=== PATIENT | female | born 1965 | race Caucasian/White ===

== ENCOUNTER 2021-05-18 05:52 | Inpatient (IN) | payer MEDICARE, SELFPAY ==
[2021-05-18] MEDS ORDERED: Sodium Chloride 0.9% 1000 ML 1,000 ML IV STA (06:17)
[2021-05-18] MEDS ORDERED: Hydromorphone 1 mg/ml Injection IV ONE ×2 (06:20→11:41)
[2021-05-18] MEDS ORDERED: Sodium Chloride 0.9% 1000 ML 1,000 ML ONE (06:26)
[2021-05-18] MEDS ORDERED: Hydromorphone 1 mg/ml Injection ONE ×2 (06:26→11:43)
--- NOTE | 2021-05-18 06:40 | ERPHSYRPT ---
- History of Present Illness Source: patient Exam Limitations: no limitations Patient Subjective Stated Complaint: pt states she has had a cough, diarrhea, and vomiting for about a week, has been short of breath for approx 2 days. Triage Nursing Assessment: pt alert and oriented, answers questions approp. pt arrive per ambulance and transfers to [facility] with assist of 3. persistent nonprodictive cough noted. coarse lung sounds with wheezes noted throuhgout. skin warm and dry Timing/Duration: week(s) (1) Cough Quality/Degree: productive cough, sputum Possible Cause: illness exposure Modifying Factors: Improves With: coughing, oxygen Associated Symptoms: chills, cough, headache, muscle aches, other (Complains of associated severe exacerbation of her chronic back pain) Hx Tetanus, Diphtheria Vaccination/Date Given: Yes (2019) Hx Influenza Vaccination/Date Given: No Hx Pneumococcal Vaccination/Date Given: No Immunizations Up to Date: Yes <SERGE MCKENZIE - Last Filed: 05/18/21 06:35> <SHAE MCDONOUGH - Last Filed: 05/18/21 12:16> - History of Present Illness Time Seen by Provider: 05/18/21 06:10 Physician History: Patient is a 55-year-old female who presents with a complaint of cough nausea and vomiting for 1 week and increasing shortness of breath over the past 2 days. She is a smoker she also lives in an apartment building that has many cases of Covid and multiple exposures. She has not had a vaccine she complains of some chills her taste and smell are okay but she has a severe headache and as mentioned above cough shortness of breath nausea vomiting. She did get a Covid test approximately a week ago which was negative. (SERGE MCKENZIE) Allergies/Adverse Reactions: Penicillins Allergy (Mild, Verified 07/07/16 08:56) Travel Risk - International Travel Have you traveled outside of the country in past 3 weeks: No - Coronavirus Screening Are you exhibiting any of the following symptoms?: Yes Symptoms: Cough: New Onset, Shortness of Breath, Vomiting/Diarrhea Close contact with a COVID-19 positive Pt in past 14-21 Days: No - Vaccine Status Have you recieved a Covid-19 vaccination: No <SERGE MCKENZIE - Last Filed: 05/18/21 06:35> - Review of Systems Constitutional: Chills Eyes: No Symptoms Ears, Nose, & Throat: Nose Congestion Respiratory: Cough, Dyspnea Cardiac: No Chest Pain, No Edema, No Syncope Abdominal/Gastrointestinal: Nausea, Vomiting Genitourinary Symptoms: No Dysuria Musculoskeletal: Back Pain Neurological: Headache Psychological: No Symptoms Endocrine: No Symptoms Hematologic/Lymphatic: No Symptoms Immunological/Allergic: No Symptoms All Other Systems: Reviewed and Negative <SERGE MCKENZIE Last Filed: 05/18/21 06:35> - Past Medical History Pertinent Past Medical History: Yes Neurological History: Stroke Cardiac History: Hypertension Respiratory History: COPD, Emphysema Psycho-Social History: Depression - Past Surgical History Past Surgical History: Yes Musculoskeletal: Orthopedic Surgery Female Surgical History: Hysterectomy, Tubal Ligation, Section Other Surgical History: neck fusion - back surgeries x 3 - right elbow - left hand - left ankle - Social History Smoking Status: Current every day smoker How long have you smoked: YRS Exposure to second hand smoke: No Drug Use: none Patient Lives Alone: Yes (lives in a [place] apartment, formerly went to [facility]) Significant Family History: no pertinent family hx <SERGE MCKENZIE Filed: 05/18/21 06:35> - Physical Exam General Appearance: moderate distress, alert Eye Exam: PERRL/EOMI, eyes nml inspection Ears, Nose, Throat Exam: normal ENT inspection, TMs normal, pharynx normal, moist mucous membranes Neck Exam: normal inspection, non-tender, supple, full range of motion Respiratory Exam: diminished breath sounds, crackles/rales, wheezing, No respiratory distress Cardiovascular Exam: regular rate/rhythm, normal heart sounds Gastrointestinal/Abdomen Exam: soft, No tenderness Back Exam: normal inspection, No CVA tenderness, No vertebral tenderness Extremity Exam: normal inspection, normal range of motion Neurologic Exam: alert, oriented x 3, cooperative, normal mood/affect, sensation nml, No motor deficits Skin Exam: normal color, warm, dry, No rash Lymphatic Exam: No adenopathy SpO2 Interpretation: normal SpO2: 92 O2 Delivery: Room Air <SERGE MCKENZIE Filed: 05/18/21 06:35> - Nursing Vital Signs Nursing Vital Signs: Initial Vital Signs Temperature 98.1 F 05/18/21 06:00 Pulse Rate 93 H 05/18/21 06:00 Respiratory Rate 24 05/18/21 06:00 Blood Pressure 158/101 05/18/21 06:00 O2 Sat by Pulse Oximetry 92 L 05/18/21 06:00 Pain Scale Pain Intensity 5 - Course Nursing assessment & vital signs reviewed: Yes <SERGE MCKENZIE - Last Filed: 05/18/21 06:35> Ordered Tests: Active Orders 24 hr Category Date Time Status [place] STAT Care 05/18/21 06:17 Active EKG-ER Only STAT Care 05/18/21 06:17 Active IV Insertion STAT Care 05/18/21 06:17 Active Oxygen-ED Only Nasal Cannula 3 lpm Care 05/18/21 06:17 Active CHEST 1 VIEW (PORTABLE) Stat Exams 05/18/21 06:17 Completed CHEST WITH CONTRAST [CT] Stat Exams 05/18/21 07:41 Completed AMYLASE Stat Lab 05/18/21 06:05 Completed BLOOD CULTURE Stat Lab 05/18/21 07:20 Received CBC W DIFF Stat Lab 05/18/21 06:05 Completed CMP Stat Lab 05/18/21 06:05 Completed D-DIMER QUANTITATIVE Stat Lab 05/18/21 06:05 Completed LIPASE Stat Lab 05/18/21 06:05 Completed Lactic Acid Stat Lab 05/18/21 06:17 Completed Manual Differential NC Stat Lab 05/18/21 06:05 Completed NT PRO BNP Stat Lab 05/18/21 06:05 Completed PROCALCITONIN Stat Lab 05/18/21 06:05 Completed PROTIME WITH INR Stat Lab 05/18/21 06:05 Completed TROPONIN Q3H Lab 05/18/21 06:05 Completed TROPONIN Q3H Lab 05/18/21 09:36 Completed TROPONIN Q3H Lab 05/18/21 12:30 Ordered TROPONIN Q3H Lab 05/18/21 15:30 Ordered TROPONIN Q3H Lab 05/18/21 18:30 Ordered UA W/RFX UR CULTURE Stat Lab 05/18/21 11:11 Completed Transfer Order Routine Transfer 05/18/21 Ordered Medication Summary Discontinued Medications Generic Name Dose Route Start Last Admin Trade Name Freq PRN Reason Stop Dose Admin Hydrocodone Bitart/Acetaminophen 10 ml 05/18/21 07:29 05/18/21 07:55 Hydrocodone/Acetaminophen 5 Ml Udcup PO 05/18/21 07:30 10 ml STAT STA Administration Hydrocodone Bitart/Acetaminophen Confirm 05/18/21 07:53 Hydrocodone/Acetaminophen 5 Ml Udcup Administered 05/18/21 07:54 Dose 10 ml .ROUTE .STK-MED ONE Methylprednisolone Sodium 0 mg 05/18/21 07:29 05/18/21 07:55 Succinate 125 mg/ Sterile IV 05/18/21 07:30 125 mg Water 2 ml STAT ONE Administration Hydromorphone HCl 1 mg 05/18/21 06:20 05/18/21 06:30 Hydromorphone 1 Mg/1ml Inj 1 Mg/Ml Syringe IV 05/18/21 06:21 1 mg STAT ONE Administration Hydromorphone HCl Confirm 05/18/21 06:26 Hydromorphone 1 Mg/1ml Inj 1 Mg/Ml Syringe Administered 05/18/21 06:27 Dose 1 mg .ROUTE .STK-MED ONE Hydromorphone HCl 1 mg 05/18/21 11:41 05/18/21 11:44 Hydromorphone 1 Mg/1ml Inj 1 Mg/Ml Syringe IV 05/18/21 11:42 1 mg STAT ONE Administration Hydromorphone HCl Confirm 05/18/21 11:43 Hydromorphone 1 Mg/1ml Inj 1 Mg/Ml Syringe Administered 05/18/21 11:44 Dose 1 mg .ROUTE .STK-MED ONE Sodium Chloride 1,000 mls @ 999 mls/hr 05/18/21 06:17 05/18/21 11:13 Sodium Chloride 0.9% 1000 Ml IV 05/18/21 07:17 Infused .Q1H1M STA Infusion Sodium Chloride Confirm 05/18/21 06:26 Sodium Chloride 0.9% 1000 Ml Administered 05/18/21 06:27 Dose 1,000 mls @ ud .ROUTE .STK-MED ONE Levofloxacin/Dextrose 500 mg in 100 mls @ 100 mls/hr 05/18/21 07:29 05/18/21 11:13 Levofloxacin 500mg/100ml D5w IV 05/18/21 08:28 Infused STAT STA Infusion Levofloxacin/Dextrose Confirm 05/18/21 07:53 Levofloxacin 500mg/100ml D5w Administered 05/18/21 07:54 Dose 500 mg in 100 mls @ ud IV .STK-MED ONE Methylprednisolone Sodium Succinate Confirm 05/18/21 07:53 Methylprednis Sod Succ 125 Mg/2 Ml Vial Administered 05/18/21 07:54 Dose 125 mg .ROUTE .STK-MED ONE Sterile Water Confirm 05/18/21 07:53 Water For Injection,Sterile 10 Ml Vial Administered 05/18/21 07:54 Dose 10 ml IJ .STK-MED ONE Lab/Rad Data: Laboratory Result Diagrams 05/18/21 06:05 05/18/21 06:05 Laboratory Results 05/18/21 05/18/21 05/18/21 Range/Units 11:11 11:01 09:36 WBC (4.0-10.5) K/mm3 RBC (4.1-5.4) M/mm3 Hgb (12.0-16.0) gm/dl Hct (35-47) % MCV (78-100) fl MCH (26-32) pg MCHC (32-36) g/dl RDW (11.5-14.0) % Plt Count (150-450) K/mm3 MPV (7.5-11.0) fl Gran % (36.0-66.0) % Eos # (Auto) (0-0.5) Absolute Lymphs (auto) (1.0-4.6) Absolute Monos (auto) (0.0-1.3) Lymphocytes % (24.0-44.0) % Monocytes % (0.0-12.0) % Eosinophils % (0.00-5.0) % Basophils % (0.0-0.4) % Absolute Granulocytes (1.4-6.9) Segmented Neutrophils (36.0-66.0) % Lymphocytes (Manual) (24-44) % Monocytes (Manual) (0.0-12.0) % Basophils # (0-0.4) Toxic Granulation Platelet Estimate (NORMAL) PT (9.4-12.5) SECONDS INR (0.8-3.0) D-Dimer (215-500) ng/mL Sodium (137-145) mmol/L Potassium (3.5-5.1) mmol/L Chloride (98-107) mmol/L Carbon Dioxide (22-30) mmol/L Anion Gap (5-15) MEQ/L BUN (7-17) mg/dL Creatinine (0.52-1.04) mg/dL Estimated GFR ML/MIN Glucose (74-106) mg/dL Lactic Acid (0.4-2.0) Calcium (8.4-10.2) mg/dL Total Bilirubin (0.2-1.3) mg/dL AST (14-36) U/L ALT (0-35) U/L Alkaline Phosphatase (38-126) U/L Troponin I < 0.012 (0.000-0.034) ng/mL NT-Pro-B Natriuret Pep (0-900) pg/mL Serum Total Protein (6.3-8.2) g/dL Albumin (3.5-5.0) g/dL Amylase (30-110) U/L Lipase (23-300) U/L Procalcitonin (0.030-0.080) ng/mL Urine Color YELLOW (YELLOW) Urine Appearance CLEAR (CLEAR) Urine pH 5.0 (5-6) Ur Specific [place] S3 (1.005-1.025) Urine Protein NEGATIVE (Negative) Urine Ketones NEGATIVE (NEGATIVE) Urine Blood NEGATIVE (0-5) Dung/ul Urine Nitrite NEGATIVE (NEGATIVE) Urine Bilirubin NEGATIVE (NEGATIVE) Urine Urobilinogen 2 (0-1) mg/dL Ur Leukocyte Esterase NEGATIVE (NEGATIVE) Urine WBC (Auto) 0-2 (0-5) /HPF Urine RBC (Auto) 0-2 (0-2) /HPF U Epithel Cells (Auto) RARE (FEW) /HPF Urine Bacteria (Auto) NONE (NEGATIVE) /HPF Urine Mucus (Auto) SLIGHT (NEGATIVE) /HPF Urine Culture Reflexed NO (NO) Urine Glucose NEGATIVE (NEGATIVE) mg/dL SARS-CoV-2 (PCR) NEGATIVE (NEGATIVE) 05/18/21 05/18/21 05/18/21 Range/Units 06:17 06:05 06:05 WBC (4.0-10.5) K/mm3 RBC (4.1-5.4) M/mm3 Hgb (12.0-16.0) gm/dl Hct (35-47) % MCV (78-100) fl MCH (26-32) pg MCHC (32-36) g/dl RDW (11.5-14.0) % Plt Count (150-450) K/mm3 MPV (7.5-11.0) fl Gran % (36.0-66.0) % Eos # (Auto) (0-0.5) Absolute Lymphs (auto) (1.0-4.6) Absolute Monos (auto) (0.0-1.3) Lymphocytes % (24.0-44.0) % Monocytes % (0.0-12.0) % Eosinophils % (0.00-5.0) % Basophils % (0.0-0.4) % Absolute Granulocytes (1.4-6.9) Segmented Neutrophils (36.0-66.0) % Lymphocytes (Manual) (24-44) % Monocytes (Manual) (0.0-12.0) % Basophils # (0-0.4) Toxic Granulation Platelet Estimate (NORMAL) PT 13.2 H (9.4-12.5) SECONDS INR 1.12 (0.8-3.0) D-Dimer 815 H* (215-500) ng/mL Sodium (137-145) mmol/L Potassium (3.5-5.1) mmol/L Chloride (98-107) mmol/L Carbon Dioxide (22-30) mmol/L Anion Gap (5-15) MEQ/L BUN (7-17) mg/dL Creatinine (0.52-1.04) mg/dL Estimated GFR ML/MIN Glucose (74-106) mg/dL Lactic Acid 1.5 (0.4-2.0) Calcium (8.4-10.2) mg/dL Total Bilirubin (0.2-1.3) mg/dL AST (14-36) U/L ALT (0-35) U/L Alkaline Phosphatase (38-126) U/L Troponin I < 0.012 (0.000-0.034) ng/mL NT-Pro-B Natriuret Pep (0-900) pg/mL Serum Total Protein (6.3-8.2) g/dL Albumin (3.5-5.0) g/dL Amylase (30-110) U/L Lipase (23-300) U/L Procalcitonin (0.030-0.080) ng/mL Urine Color (YELLOW) Urine Appearance (CLEAR) Urine pH (5-6) Ur Specific [place] (1.005-1.025) Urine Protein (Negative) Urine Ketones (NEGATIVE) Urine Blood (0-5) Dung/ul Urine Nitrite (NEGATIVE) Urine Bilirubin (NEGATIVE) Urine Urobilinogen (0-1) mg/dL Ur Leukocyte Esterase (NEGATIVE) Urine WBC (Auto) (0-5) /HPF Urine RBC (Auto) (0-2) /HPF U Epithel Cells (Auto) (FEW) /HPF Urine Bacteria (Auto) (NEGATIVE) /HPF Urine Mucus (Auto) (NEGATIVE) /HPF Urine Culture Reflexed (NO) Urine Glucose (NEGATIVE) mg/dL SARS-CoV-2 (PCR) (NEGATIVE) 05/18/21 05/18/21 Range/Units 06:05 06:05 WBC 20.4 H (4.0-10.5) K/mm3 RBC 4.23 (4.1-5.4) M/mm3 Hgb 13.9 (12.0-16.0) gm/dl Hct 42.0 (35-47) % MCV 99.3 (78-100) fl MCH 32.9 H (26-32) pg MCHC 33.1 (32-36) g/dl RDW 13.2 (11.5-14.0) % Plt Count 299 (150-450) K/mm3 MPV 9.8 (7.5-11.0) fl Gran % 80.6 H (36.0-66.0) % Eos # (Auto) 0.02 (0-0.5) Absolute Lymphs (auto) 2.30 (1.0-4.6) Absolute Monos (auto) 1.61 H (0.0-1.3) Lymphocytes % 11.3 L (24.0-44.0) % Monocytes % 7.9 (0.0-12.0) % Eosinophils % 0.1 (0.00-5.0) % Basophils % 0.1 (0.0-0.4) % Absolute Granulocytes 16.44 H (1.4-6.9) Segmented Neutrophils 82 H (36.0-66.0) % Lymphocytes (Manual) 12 L (24-44) % Monocytes (Manual) 6 (0.0-12.0) % Basophils # 0.02 (0-0.4) Toxic Granulation 1+ Platelet Estimate NORMAL (NORMAL) PT (9.4-12.5) SECONDS INR (0.8-3.0) D-Dimer (215-500) ng/mL Sodium 137 (137-145) mmol/L Potassium 4.1 (3.5-5.1) mmol/L Chloride 103 (98-107) mmol/L Carbon Dioxide 21 L (22-30) mmol/L Anion Gap 16.4 H (5-15) MEQ/L BUN 22 H (7-17) mg/dL Creatinine 0.79 (0.52-1.04) mg/dL Estimated GFR > 60.0 ML/MIN Glucose 159 H (74-106) mg/dL Lactic Acid (0.4-2.0) Calcium 9.8 (8.4-10.2) mg/dL Total Bilirubin 0.50 (0.2-1.3) mg/dL AST 25 (14-36) U/L ALT 19 (0-35) U/L Alkaline Phosphatase 112 (38-126) U/L Troponin I (0.000-0.034) ng/mL NT-Pro-B Natriuret Pep 113 (0-900) pg/mL Serum Total Protein 7.8 (6.3-8.2) g/dL Albumin 4.4 (3.5-5.0) g/dL Amylase 55 (30-110) U/L Lipase 45 (23-300) U/L Procalcitonin 0.419 H (0.030-0.080) ng/mL Urine Color (YELLOW) Urine Appearance (CLEAR) Urine pH (5-6) Ur Specific [place] (1.005-1.025) Urine Protein (Negative) Urine Ketones (NEGATIVE) Urine Blood (0-5) Dung/ul Urine Nitrite (NEGATIVE) Urine Bilirubin (NEGATIVE) Urine Urobilinogen (0-1) mg/dL Ur Leukocyte Esterase (NEGATIVE) Urine WBC (Auto) (0-5) /HPF Urine RBC (Auto) (0-2) /HPF U Epithel Cells (Auto) (FEW) /HPF Urine Bacteria (Auto) (NEGATIVE) /HPF Urine Mucus (Auto) (NEGATIVE) /HPF Urine Culture Reflexed (NO) Urine Glucose (NEGATIVE) mg/dL SARS-CoV-2 (PCR) (NEGATIVE) - Progress Air Movement: fair Blood Culture(s) Obtained: Yes Antibiotics given: Yes Counseled pt/family regarding: lab results, diagnosis, rad results, smoking cessation <SHAE MCDONOUGH - Last Filed: 05/18/21 12:16> - Progress Progress Note: 05/18/21 09:45 Chest x-ray read by Dr. Mckenzie as possible right lower lobe pneumonia. CAT scan of the chest with contrast shows no pulmonary embolus. There is diffuse patchy alveolar opacities present. There is pulmonary emphysema present. (SHAE MCDNOOUGH) - Departure Departure Disposition: Observation Critical Care Time: No <SERGE MCKENZIE - Last Filed: 05/18/21 06:35> - Departure Departure Disposition: In-patient Admission <SHAE MCDONOUGH - Last Filed: 05/18/21 12:16> - Departure Clinical Impression: Hypoxia, Pneumonia Condition: Fair Referrals: NATALIE MACIEL [NON-STAFF PHY W/O PRIVILEGES] - Instructions: Cough, Adult (DC)
[2021-05-18 06:44] LABS: Absolute Neutrophil Ct (ANC) 16.44 (1.4-6.9); BASOPHIL % 0.1 % (0.0-0.4); Basophil (Absolute #) 0.02 (0-0.4); Eosinophil % 0.1 % (0.00-5.0); Eosinophil (Absolute #) 0.02 (0-0.5); Hemoglobin 13.9 gm/dl (12.0-16.0); Lymphocytes % 11.3 % (24.0-44.0); Mean Cell Volume 99.3 fl (78-100); Mean Corpuscular Hemoglobin 32.9 pg (26-32); Mean Corpuscular Hgb Concent. 33.1 g/dl (32-36); Mean Platelet Volume 9.8 fl (7.5-11.0); Monocyte (Absolute #) 1.61 (0.0-1.3); Monocytes % 7.9 % (0.0-12.0); Neutrophil % 80.6 % (36.0-66.0); Platelet Count 299 K/mm3 (150-450); Red Blood Count 4.23 M/mm3 (4.1-5.4); Red Cell Distribution Width 13.2 % (11.5-14.0); White Blood Count 20.4 K/mm3 (4.0-10.5)
[2021-05-18 06:49] LABS: INR 1.12 (0.8-3.0); PROTIME 13.2 SECONDS (9.4-12.5)
[2021-05-18] MEDS ORDERED: HYDROCODONE-ACETAMIN 2.5-108/5 ML SOLUTION PO STA (07:29)
[2021-05-18] MEDS ORDERED: Levofloxacin 500MG/100ML D5W 500 MG/100 ML BAG IV STA (07:29)
[2021-05-18] MEDS ORDERED: solu-MEDROL 125 MG, Sterile H2O 10 ml 2 ML IV ONE ×2 (07:29)
[2021-05-18 07:36] LABS: ALBUMIN 4.4 g/dL (3.5-5.0); ALKALINE PHOSPHATASE 112 U/L (38-126); AMYLASE 55 U/L (30-110); ANION GAP 16.4 MEQ/L (5-15); BLOOD UREA NITROGEN 22 mg/dL (7-17); CHLORIDE 103 mmol/L (98-107); Calcium 9.8 mg/dL (8.4-10.2); Carbon Dioxide 21 mmol/L (22-30); Creatinine 1 0.79 mg/dL (0.52-1.04); EST GLOMERULAR FILTRATION RATE > 60.0 ML/MIN; Glucose 159 mg/dL (74-106); LIPASE 45 U/L (23-300); NT PRO BNP 113 pg/mL (0-900); PROCALCITONIN 0.419 ng/mL (0.030-0.080); Potassium 4.1 mmol/L (3.5-5.1); SGOT/AST 25 U/L (14-36); SGPT/ALT 19 U/L (0-35); SODIUM 137 mmol/L (137-145); Total Protein 7.8 g/dL (6.3-8.2)
[2021-05-18 07:37] LABS: Lymphocytes 12 % (24-44); Monocyte 6 % (0.0-12.0); Neutrophils 82 % (36.0-66.0); Platelet Estimate NORMAL (NORMAL); Total Cells Counted 100; Toxic Granulation 1+
[2021-05-18] MEDS ORDERED: Sterile H2O 10 ml IJ ONE (07:53)
[2021-05-18] MEDS ORDERED: HYDROCODONE-ACETAMIN 2.5-108/5 ML SOLUTION ONE (07:53)
[2021-05-18] MEDS ORDERED: solu-MEDROL ONE (07:53)
[2021-05-18] MEDS ORDERED: Levofloxacin 500MG/100ML D5W 500 MG/100 ML BAG IV ONE (07:53)
--- NOTE | 2021-05-18 08:51 | XRAY ---
Indication: Cough. Comparison: None Portable chest remains hyperinflated and clear. Heart not enlarged. Bony thorax intact again with mild osteopenia, degenerative changes, and incompletely visualized cervical/lumbar hardware. Impression: Continued nonacute chest with chronic features.
--- NOTE | 2021-05-18 09:29 | XRAY ---
Indication: Cough, short of breath, and vomiting. Elevated d-dimer. COPD. Multiple contiguous axial images obtained through the chest using 80 cc Isovue 370 contrast and PE protocol. Comparison: None Good opacification of the pulmonary arteries to include the lobar and segmental branches. No pulmonary embolus. Heart not enlarged. Aorta normal in course and caliber. Lungs demonstrates mild pulmonary edema and diffuse bilateral patchy interstitial alveolar opacities without consolidation/large effusion. Peripheral right middle lobe demonstrates focal subsegmental atelectasis/scarring. Bony thorax intact. Limited upper abdomen unremarkable. Impression: 1. Negative pulmonary bolus. 2. Diffuse bilateral patchy interstitial alveolar opacities. Rule out COVID 19 pneumonia. 3. Pulmonary emphysema.
[2021-05-18 11:31] LABS: Appearance CLEAR (CLEAR); Bilirubin NEGATIVE (NEGATIVE); Blood NEGATIVE Ery/ul (0-5); Epithelial Cells RARE /HPF (FEW); Glucose NEGATIVE (NEGATIVE); Ketones NEGATIVE (NEGATIVE); Leukocyte Esterase NEGATIVE (NEGATIVE); Mucus SLIGHT /HPF (NEGATIVE); Nitrite NEGATIVE (NEGATIVE); Protein,Urine Dip NEGATIVE (Negative); RBC 0-2 /HPF (0-2); Urobilinogen 2 mg/dL (0-1); WBC 0-2 /HPF (0-5)
[2021-05-18] MEDS ORDERED: TYLENOL 325 MG PO PRN (12:51)
[2021-05-18] MEDS: Sodium Chloride 0.9% 1000 ML 1,000 ML IV SCH ×2 (13:39→23:59)
[2021-05-18] MEDS: solu-MEDROL 80 MG, Sterile H2O 10 ml 2 ML IV SCH ×4 (13:41→21:09)
[2021-05-18] MEDS: Zofran 4 MG/2 ML VIAL IV PRN (14:56)
[2021-05-18] MEDS: HYDROCODONE-ACETAMIN 2.5-108/5 ML SOLUTION PO PRN ×2 (14:56→19:48)
[2021-05-18] MEDS ORDERED: VENTOLIN COMMON CANISTER IH PRN (16:25)
[2021-05-18] MEDS: Ativan 2 MG/1 ML VIAL IV PRN (18:15)
--- NOTE | 2021-05-18 19:09 | PCM.HP ---
History of Present Illness - Chief Complaint Chief Complaint: pneumonia History of Present Illness: is a 55 year old female female pt with no local MD with PMHx HTN and COPD who was admitted through ER with pneumonia. For the past 1 week she has had cough, diarrhea, vomiting, and chills. Was increasingly SOB x 2d and c/o severe ABARCA. Was seen in ER where she needed 3 assist to get onto the bed. Was found to have diffuse airspace opacities on CTA chest (neg for PE) after having elevated d-dimer of 815. She lives in a hotel in [place] and has had multiple covid exposures recently, apparently. She did test negative 1 week ago but it's not clear when her last exposure happened. Her WBC were 20,000. She was started on IV levaquin. Will start her on SQ lovenox. After admission her BP was 201 systolic; she was given her pain medicine and the bp decreased to 160s systolic. She apparently used to take amlodipine but hasn't been on it for some time. - Review of Systems Constitutional: Chills, Weakness Respiratory: Cough, Short Of Breath Cardiac: Chest Pain ("not much") Abdominal/Gastrointestinal: Abdominal Pain (lower-mid abd; gone currently), Nausea, Vomiting, Diarrhea Musculoskeletal: Back Pain (chronic) Neurological: Dizziness Psychological: Depression (several deaths in the family recently; denies suicidal ideation.), Other (Denies EtOH use in years. She used to use some marijuana.) All Other Systems: Reviewed and Negative Medications & Allergies Home Medications: Home Medication List No Reportable Medications [No Reported Medications] 05/18/21 [History Confirmed 05/18/21] Allergies/Adverse Reactions: Allergies Allergy/AdvReac Type Severity Reaction Status Date / Time Penicillins Allergy Mild Verified 05/18/21 14:22 - Past Medical History Past Medical History: Yes Neurological History: Stroke Cardiac History: Hypertension Respiratory History: COPD, Emphysema Musculoskelatal History: No Pertinent History GI Medical History: No Pertinent History History: No Pertinent History Pyscho-Social History: Depression Reproductive Disorders: No Pertinent History - Female History Are you now?: No - Past Surgical History Past Surgical History: Yes Neuro Surgical History: No Pertinent History Cardiac History: No Pertinent History Respiratory Surgery: No Pertinent History GI Surgical History: No Pertinent History Genitourinary Surgical Hx: No Pertinent History Musculskeletal Surgical Hx: Orthopedic Surgery Female Surgical History: Hysterectomy, Tubal Ligation, Section Other Surgical History: neck fusion - back surgeries x 3 - right elbow - left hand - left ankle - Social History Smoking Status: Current every day smoker How long have you smoked: YRS Exposure to second hand smoke: No Alcohol: None Drug Use: none Significant Family History: no pertinent family hx - Physical Exam Vital Signs: Vital Signs - 24 hr Temp Pulse Resp BP Pulse Ox 05/18/21 18:15 84 28 H 05/18/21 16:00 98.5 F 84 28 H 165/80 93 L 05/18/21 15:55 84 20 92 L 05/18/21 12:56 97.1 F 79 24 203/101 92 L 05/18/21 12:00 84 16 179/106 93 L 05/18/21 11:11 84 18 165/113 96 05/18/21 10:17 86 17 175/102 94 L 05/18/21 08:04 80 21 140/90 93 L 05/18/21 07:46 82 19 164/94 94 L 05/18/21 06:39 92 L 05/18/21 06:00 98.1 F 93 H 22 158/101 92 L General Appearance: no apparent distress, alert, other (appears older than stated age.) Neurologic Exam: oriented x 3, cooperative Eye Exam: eyes nml inspection Ears, Nose, Throat Exam: moist mucous membranes Neck Exam: normal inspection, No lymphadenopathy Respiratory Exam: diminished breath sounds (poor air exchange), rhonchi (scattered), wheezing (scattered), No crackles/rales Cardiovascular Exam: regular rate/rhythm, normal heart sounds, No murmur Gastrointestinal/Abdomen Exam: soft, normal bowel sounds, tenderness (generalized, throughout), No distention, No mass, No guarding, No rebound Back Exam: normal inspection, other (surgical scar midline lumbar spine) Extremity Exam: normal inspection, No pedal edema, No swelling Skin Exam: normal color, warm, dry, No rash Results - Labs Lab/Micro Results: Lab Results-Last 24 Hours 05/18/21 05/18/21 05/18/21 Range/Units 06:05 06:05 06:05 WBC 20.4 H (4.0-10.5) K/mm3 RBC 4.23 (4.1-5.4) M/mm3 Hgb 13.9 (12.0-16.0) gm/dl Hct 42.0 (35-47) % MCV 99.3 (78-100) fl MCH 32.9 H (26-32) pg MCHC 33.1 (32-36) g/dl RDW 13.2 (11.5-14.0) % Plt Count 299 (150-450) K/mm3 MPV 9.8 (7.5-11.0) fl Gran % 80.6 H (36.0-66.0) % Eos # (Auto) 0.02 (0-0.5) Absolute Lymphs (auto) 2.30 (1.0-4.6) Absolute Monos (auto) 1.61 H (0.0-1.3) Lymphocytes % 11.3 L (24.0-44.0) % Monocytes % 7.9 (0.0-12.0) % Eosinophils % 0.1 (0.00-5.0) % Basophils % 0.1 (0.0-0.4) % Absolute Granulocytes 16.44 H (1.4-6.9) Segmented Neutrophils 82 H (36.0-66.0) % Lymphocytes (Manual) 12 L (24-44) % Monocytes (Manual) 6 (0.0-12.0) % Basophils # 0.02 (0-0.4) Toxic Granulation 1+ Platelet Estimate NORMAL (NORMAL) PT 13.2 H (9.4-12.5) SECONDS INR 1.12 (0.8-3.0) D-Dimer 815 H* (215-500) ng/mL Sodium 137 (137-145) mmol/L Potassium 4.1 (3.5-5.1) mmol/L Chloride 103 (98-107) mmol/L Carbon Dioxide 21 L (22-30) mmol/L Anion Gap 16.4 H (5-15) MEQ/L BUN 22 H (7-17) mg/dL Creatinine 0.79 (0.52-1.04) mg/dL Estimated GFR > 60.0 ML/MIN Glucose 159 H (74-106) mg/dL Lactic Acid (0.4-2.0) Calcium 9.8 (8.4-10.2) mg/dL Total Bilirubin 0.50 (0.2-1.3) mg/dL AST 25 (14-36) U/L ALT 19 (0-35) U/L Alkaline Phosphatase 112 (38-126) U/L Troponin I (0.000-0.034) ng/mL NT-Pro-B Natriuret Pep 113 (0-900) pg/mL Serum Total Protein 7.8 (6.3-8.2) g/dL Albumin 4.4 (3.5-5.0) g/dL Amylase 55 (30-110) U/L Lipase 45 (23-300) U/L Procalcitonin 0.419 H (0.030-0.080) ng/mL Urine Color (YELLOW) Urine Appearance (CLEAR) Urine pH (5-6) Ur Specific [place] (1.005-1.025) Urine Protein (Negative) Urine Ketones (NEGATIVE) Urine Blood (0-5) Dung/ul Urine Nitrite (NEGATIVE) Urine Bilirubin (NEGATIVE) Urine Urobilinogen (0-1) mg/dL Ur Leukocyte Esterase (NEGATIVE) Urine WBC (Auto) (0-5) /HPF Urine RBC (Auto) (0-2) /HPF U Epithel Cells (Auto) (FEW) /HPF Urine Bacteria (Auto) (NEGATIVE) /HPF Urine Mucus (Auto) (NEGATIVE) /HPF Urine Culture Reflexed (NO) Urine Glucose (NEGATIVE) mg/dL SARS-CoV-2 (PCR) (NEGATIVE) 05/18/21 05/18/21 05/18/21 Range/Units 06:05 06:17 09:36 WBC (4.0-10.5) K/mm3 RBC (4.1-5.4) M/mm3 Hgb (12.0-16.0) gm/dl Hct (35-47) % MCV (78-100) fl MCH (26-32) pg MCHC (32-36) g/dl RDW (11.5-14.0) % Plt Count (150-450) K/mm3 MPV (7.5-11.0) fl Gran % (36.0-66.0) % Eos # (Auto) (0-0.5) Absolute Lymphs (auto) (1.0-4.6) Absolute Monos (auto) (0.0-1.3) Lymphocytes % (24.0-44.0) % Monocytes % (0.0-12.0) % Eosinophils % (0.00-5.0) % Basophils % (0.0-0.4) % Absolute Granulocytes (1.4-6.9) Segmented Neutrophils (36.0-66.0) % Lymphocytes (Manual) (24-44) % Monocytes (Manual) (0.0-12.0) % Basophils # (0-0.4) Toxic Granulation Platelet Estimate (NORMAL) PT (9.4-12.5) SECONDS INR (0.8-3.0) D-Dimer (215-500) ng/mL Sodium (137-145) mmol/L Potassium (3.5-5.1) mmol/L Chloride (98-107) mmol/L Carbon Dioxide (22-30) mmol/L Anion Gap (5-15) MEQ/L BUN (7-17) mg/dL Creatinine (0.52-1.04) mg/dL Estimated GFR ML/MIN Glucose (74-106) mg/dL Lactic Acid 1.5 (0.4-2.0) Calcium (8.4-10.2) mg/dL Total Bilirubin (0.2-1.3) mg/dL AST (14-36) U/L ALT (0-35) U/L Alkaline Phosphatase (38-126) U/L Troponin I < 0.012 < 0.012 (0.000-0.034) ng/mL NT-Pro-B Natriuret Pep (0-900) pg/mL Serum Total Protein (6.3-8.2) g/dL Albumin (3.5-5.0) g/dL Amylase (30-110) U/L Lipase (23-300) U/L Procalcitonin (0.030-0.080) ng/mL Urine Color (YELLOW) Urine Appearance (CLEAR) Urine pH (5-6) Ur Specific [place] (1.005-1.025) Urine Protein (Negative) Urine Ketones (NEGATIVE) Urine Blood (0-5) Dung/ul Urine Nitrite (NEGATIVE) Urine Bilirubin (NEGATIVE) Urine Urobilinogen (0-1) mg/dL Ur Leukocyte Esterase (NEGATIVE) Urine WBC (Auto) (0-5) /HPF Urine RBC (Auto) (0-2) /HPF U Epithel Cells (Auto) (FEW) /HPF Urine Bacteria (Auto) (NEGATIVE) /HPF Urine Mucus (Auto) (NEGATIVE) /HPF Urine Culture Reflexed (NO) Urine Glucose (NEGATIVE) mg/dL SARS-CoV-2 (PCR) (NEGATIVE) 05/18/21 05/18/21 05/18/21 Range/Units 11:01 11:11 13:05 WBC (4.0-10.5) K/mm3 RBC (4.1-5.4) M/mm3 Hgb (12.0-16.0) gm/dl Hct (35-47) % MCV (78-100) fl MCH (26-32) pg MCHC (32-36) g/dl RDW (11.5-14.0) % Plt Count (150-450) K/mm3 MPV (7.5-11.0) fl Gran % (36.0-66.0) % Eos # (Auto) (0-0.5) Absolute Lymphs (auto) (1.0-4.6) Absolute Monos (auto) (0.0-1.3) Lymphocytes % (24.0-44.0) % Monocytes % (0.0-12.0) % Eosinophils % (0.00-5.0) % Basophils % (0.0-0.4) % Absolute Granulocytes (1.4-6.9) Segmented Neutrophils (36.0-66.0) % Lymphocytes (Manual) (24-44) % Monocytes (Manual) (0.0-12.0) % Basophils # (0-0.4) Toxic Granulation Platelet Estimate (NORMAL) PT (9.4-12.5) SECONDS INR (0.8-3.0) D-Dimer (215-500) ng/mL Sodium (137-145) mmol/L Potassium (3.5-5.1) mmol/L Chloride (98-107) mmol/L Carbon Dioxide (22-30) mmol/L Anion Gap (5-15) MEQ/L BUN (7-17) mg/dL Creatinine (0.52-1.04) mg/dL Estimated GFR ML/MIN Glucose (74-106) mg/dL Lactic Acid (0.4-2.0) Calcium (8.4-10.2) mg/dL Total Bilirubin (0.2-1.3) mg/dL AST (14-36) U/L ALT (0-35) U/L Alkaline Phosphatase (38-126) U/L Troponin I < 0.012 (0.000-0.034) ng/mL NT-Pro-B Natriuret Pep (0-900) pg/mL Serum Total Protein (6.3-8.2) g/dL Albumin (3.5-5.0) g/dL Amylase (30-110) U/L Lipase (23-300) U/L Procalcitonin (0.030-0.080) ng/mL Urine Color YELLOW (YELLOW) Urine Appearance CLEAR (CLEAR) Urine pH 5.0 (5-6) Ur Specific [place] S3 (1.005-1.025) Urine Protein NEGATIVE (Negative) Urine Ketones NEGATIVE (NEGATIVE) Urine Blood NEGATIVE (0-5) Dung/ul Urine Nitrite NEGATIVE (NEGATIVE) Urine Bilirubin NEGATIVE (NEGATIVE) Urine Urobilinogen 2 (0-1) mg/dL Ur Leukocyte Esterase NEGATIVE (NEGATIVE) Urine WBC (Auto) 0-2 (0-5) /HPF Urine RBC (Auto) 0-2 (0-2) /HPF U Epithel Cells (Auto) RARE (FEW) /HPF Urine Bacteria (Auto) NONE (NEGATIVE) /HPF Urine Mucus (Auto) SLIGHT (NEGATIVE) /HPF Urine Culture Reflexed NO (NO) Urine Glucose NEGATIVE (NEGATIVE) mg/dL SARS-CoV-2 (PCR) NEGATIVE (NEGATIVE) 05/18/21 Range/Units 15:40 WBC (4.0-10.5) K/mm3 RBC (4.1-5.4) M/mm3 Hgb (12.0-16.0) gm/dl Hct (35-47) % MCV (78-100) fl MCH (26-32) pg MCHC (32-36) g/dl RDW (11.5-14.0) % Plt Count (150-450) K/mm3 MPV (7.5-11.0) fl Gran % (36.0-66.0) % Eos # (Auto) (0-0.5) Absolute Lymphs (auto) (1.0-4.6) Absolute Monos (auto) (0.0-1.3) Lymphocytes % (24.0-44.0) % Monocytes % (0.0-12.0) % Eosinophils % (0.00-5.0) % Basophils % (0.0-0.4) % Absolute Granulocytes (1.4-6.9) Segmented Neutrophils (36.0-66.0) % Lymphocytes (Manual) (24-44) % Monocytes (Manual) (0.0-12.0) % Basophils # (0-0.4) Toxic Granulation Platelet Estimate (NORMAL) PT (9.4-12.5) SECONDS INR (0.8-3.0) D-Dimer (215-500) ng/mL Sodium (137-145) mmol/L Potassium (3.5-5.1) mmol/L Chloride (98-107) mmol/L Carbon Dioxide (22-30) mmol/L Anion Gap (5-15) MEQ/L BUN (7-17) mg/dL Creatinine (0.52-1.04) mg/dL Estimated GFR ML/MIN Glucose (74-106) mg/dL Lactic Acid (0.4-2.0) Calcium (8.4-10.2) mg/dL Total Bilirubin (0.2-1.3) mg/dL AST (14-36) U/L ALT (0-35) U/L Alkaline Phosphatase (38-126) U/L Troponin I < 0.012 (0.000-0.034) ng/mL NT-Pro-B Natriuret Pep (0-900) pg/mL Serum Total Protein (6.3-8.2) g/dL Albumin (3.5-5.0) g/dL Amylase (30-110) U/L Lipase (23-300) U/L Procalcitonin (0.030-0.080) ng/mL Urine Color (YELLOW) Urine Appearance (CLEAR) Urine pH (5-6) Ur Specific [place] (1.005-1.025) Urine Protein (Negative) Urine Ketones (NEGATIVE) Urine Blood (0-5) Dung/ul Urine Nitrite (NEGATIVE) Urine Bilirubin (NEGATIVE) Urine Urobilinogen (0-1) mg/dL Ur Leukocyte Esterase (NEGATIVE) Urine WBC (Auto) (0-5) /HPF Urine RBC (Auto) (0-2) /HPF U Epithel Cells (Auto) (FEW) /HPF Urine Bacteria (Auto) (NEGATIVE) /HPF Urine Mucus (Auto) (NEGATIVE) /HPF Urine Culture Reflexed (NO) Urine Glucose (NEGATIVE) mg/dL SARS-CoV-2 (PCR) (NEGATIVE) - Radiology Impressions Radiology Exams & Impressions: Radiology Procedures Category Date Time Status CHEST 1 VIEW (PORTABLE) Stat Exams 05/18/21 06:17 Completed CHEST WITH CONTRAST [CT] Stat Exams 05/18/21 07:41 Completed - Other Procedures and Tests Respiratory Therapy 05/18/21 12:51 Oxygen Nasal Cannula 3 lpm Respiratory Therapy Assessment DAILY Assessment/Plan (1) Pneumonia Current Visit: Yes Status: Acute Qualifiers: Pneumonia type: due to unspecified organism Laterality: bilateral Lung location: unspecified part of lung Qualified Code(s): J18.9 - Pneumonia, unspecified organism Assessment & Plan: Her WBC is elevated with a left shift, so she is on IV levaquin day #1. There is certainly a risk of Covid, with recent exposures, despite her negative test 1 week ago. She has been moved to a negative pressure room and will be on airborne precautions. On lovenox 40mg SQ daily due to elevated d-dimer. Code(s): J18.9 - PNEUMONIA, UNSPECIFIED ORGANISM (2) Tobacco abuse Current Visit: Yes Status: Chronic Assessment & Plan: Pt given 14mg nicotine patch. Code(s): Z72.0 - TOBACCO USE (3) Exposure to COVID-19 virus Current Visit: Yes Status: Acute Code(s): Z20.822 - CONTACT WITH AND (SUSPECTED) EXPOSURE TO COVID-19 (4) Hypertensive urgency Current Visit: Yes Status: Resolved Assessment & Plan: The BP is better with her back pain controlled. She does have serial troponins pending. prn hydralazine order given. Code(s): I16.0 - HYPERTENSIVE URGENCY (5) Hypertension Current Visit: Yes Status: Acute Qualifiers: Hypertension type: primary hypertension Qualified Code(s): I10 - Essential (primary) hypertension Assessment & Plan: Restarted amlodipine 5mg po daily, just today. Code(s): I10 - ESSENTIAL (PRIMARY) HYPERTENSION (6) Hypoxia Current Visit: Yes Status: Acute Code(s): R09.02 - HYPOXEMIA (7) COPD (chronic obstructive pulmonary disease) Current Visit: No Status: Acute Qualifiers: COPD type: unspecified COPD Qualified Code(s): J44.9 - Chronic obstructive pulmonary disease, unspecified (8) Low back pain Current Visit: Yes Status: Acute Qualifiers: Chronicity: chronic Back pain laterality: midline Sciatica presence: unsp ecified whether sciatica present Qualified Code(s): M54.50 - Low back pain, unspecified; G89.29 - Other chronic pain Assessment & Plan: Worse with coughing. Will give hydrocodone here for the pain. Code(s): M54.50 - LOW BACK PAIN, UNSPECIFIED (9) History of CVA (cerebrovascular accident) Current Visit: Yes Status: Chronic Code(s): Z86.73 - PRSNL HX OF TIA (TIA), AND CEREB INFRC W/O RESID DEFICITS
[2021-05-18] MEDS: VENTOLIN COMMON CANISTER IH SCH (19:12)
[2021-05-18] MEDS ORDERED: NICODERM CQ 14 MG TOP SCH (19:15)
[2021-05-18] MEDS: ENOXAPARIN SODIUM SQ SCH (19:32)
[2021-05-18] MEDS: XANAX 1 MG PO PRN ×2 (21:36→22:20)
[2021-05-19] MEDS: OXYCODONE-ACETAMINOPHEN 10-325 PO PRN ×5 (00:08→21:19)
[2021-05-19] MEDS: Zofran 4 MG/2 ML VIAL IV PRN (00:09)
[2021-05-19] MEDS: Ativan 2 MG/1 ML VIAL IV PRN ×3 (03:16→22:46)
[2021-05-19 05:23] LABS: Absolute Neutrophil Ct (ANC) 16.66 (1.4-6.9); BASOPHIL % 0.1 % (0.0-0.4); Basophil (Absolute #) 0.01 (0-0.4); Eosinophil (Absolute #) 0 (0-0.5); Hematocrit 36.9 % (35-47); Hemoglobin 12.1 gm/dl (12.0-16.0); Lymphocyte (Absolute #) 0.77 (1.0-4.6); Lymphocytes % 4.2 % (24.0-44.0); Mean Cell Volume 100.8 fl (78-100); Mean Corpuscular Hemoglobin 33.1 pg (26-32); Mean Corpuscular Hgb Concent. 32.8 g/dl (32-36); Mean Platelet Volume 9.8 fl (7.5-11.0); Monocytes % 3.9 % (0.0-12.0); Neutrophil % 91.8 % (36.0-66.0); Platelet Count 281 K/mm3 (150-450); Red Blood Count 3.66 M/mm3 (4.1-5.4); Red Cell Distribution Width 13.1 % (11.5-14.0); White Blood Count 18.1 K/mm3 (4.0-10.5)
[2021-05-19] MEDS: solu-MEDROL 80 MG, Sterile H2O 10 ml 2 ML IV SCH ×6 (06:17→21:19)
[2021-05-19 06:25] LABS: ALBUMIN 3.7 g/dL (3.5-5.0); ALKALINE PHOSPHATASE 87 U/L (38-126); ANION GAP 15.6 MEQ/L (5-15); BLOOD UREA NITROGEN 16 mg/dL (7-17); CHLORIDE 111 mmol/L (98-107); Calcium 9.2 mg/dL (8.4-10.2); Carbon Dioxide 19 mmol/L (22-30); Creatinine 1 0.58 mg/dL (0.52-1.04); EST GLOMERULAR FILTRATION RATE > 60.0 ML/MIN; Glucose 170 mg/dL (74-106); Potassium 4.7 mmol/L (3.5-5.1); SGOT/AST 32 U/L (14-36); SGPT/ALT 28 U/L (0-35); SODIUM 141 mmol/L (137-145); Total Protein 6.7 g/dL (6.3-8.2)
[2021-05-19] MEDS: VENTOLIN COMMON CANISTER IH SCH ×4 (07:05→19:19)
--- NOTE | 2021-05-19 09:16 | PCM.NOTE ---
Date and Time: 05/19/21914 Subjective Assessment: patient states she feels terrible, cough and short of breath with pain in her back every time she coughs Objective Exam General Appearance: no apparent distress Respiratory Exam: accessory muscle use, prolonged expirations, rhonchi Cardiovascular Exam: regular rate/rhythm, normal heart sounds Gastrointestinal/Abdomen Exam: soft, No tenderness, No mass OBJECTIVE DATA Vital Signs: Vital Signs - 24 hr Temp Pulse Resp BP Pulse Ox 05/19/21 08:00 98.4 F 98 H 19 146/79 90 L 05/19/21 07:47 92 H 22 90 L 05/19/21 03:27 97.7 F 86 18 159/83 92 L 05/19/21 03:16 86 23 05/19/21 00:19 25 H 93 L 05/19/21 00:00 98.4 F 89 16 125/85 91 L 05/18/21 21:53 91 L 05/18/21 19:47 98.4 F 100 H 22 144/76 91 L 05/18/21 19:13 89 24 91 L 05/18/21 18:15 84 28 H 05/18/21 16:00 98.5 F 84 28 H 165/80 93 L 05/18/21 15:55 84 20 92 L 05/18/21 12:56 97.1 F 79 24 203/101 92 L 05/18/21 12:00 84 16 179/106 93 L 05/18/21 11:11 84 18 165/113 96 05/18/21 10:17 86 17 175/102 94 L Pain Assessment - Last Documented Pain Intensity 6 Pain Scale Used 0-10 Pain Scale Intake and Output: Intake & Output 05/16/21 05/17/21 05/18/21 05/19/21 11:59 11:59 11:59 11:59 Weight 44.2 kg 46.2 kg Lab Results: Lab Results-Last 24 Hours 05/18/21 05/18/21 05/18/21 Range/Units 09:36 11:01 11:11 WBC (4.0-10.5) K/mm3 RBC (4.1-5.4) M/mm3 Hgb (12.0-16.0) gm/dl Hct (35-47) % MCV (78-100) fl MCH (26-32) pg MCHC (32-36) g/dl RDW (11.5-14.0) % Plt Count (150-450) K/mm3 MPV (7.5-11.0) fl Gran % (36.0-66.0) % Eos # (Auto) (0-0.5) Absolute Lymphs (auto) (1.0-4.6) Absolute Monos (auto) (0.0-1.3) Lymphocytes % (24.0-44.0) % Monocytes % (0.0-12.0) % Eosinophils % (0.00-5.0) % Basophils % (0.0-0.4) % Absolute Granulocytes (1.4-6.9) Basophils # (0-0.4) Sodium (137-145) mmol/L Potassium (3.5-5.1) mmol/L Chloride (98-107) mmol/L Carbon Dioxide (22-30) mmol/L Anion Gap (5-15) MEQ/L BUN (7-17) mg/dL Creatinine (0.52-1.04) mg/dL Estimated GFR ML/MIN Glucose (74-106) mg/dL Calcium (8.4-10.2) mg/dL Total Bilirubin (0.2-1.3) mg/dL AST (14-36) U/L ALT (0-35) U/L Alkaline Phosphatase (38-126) U/L Troponin I < 0.012 (0.000-0.034) ng/mL Serum Total Protein (6.3-8.2) g/dL Albumin (3.5-5.0) g/dL Urine Color YELLOW (YELLOW) Urine Appearance CLEAR (CLEAR) Urine pH 5.0 (5-6) Ur Specific [place] S3 (1.005-1.025) Urine Protein NEGATIVE (Negative) Urine Ketones NEGATIVE (NEGATIVE) Urine Blood NEGATIVE (0-5) Dung/ul Urine Nitrite NEGATIVE (NEGATIVE) Urine Bilirubin NEGATIVE (NEGATIVE) Urine Urobilinogen 2 (0-1) mg/dL Ur Leukocyte Esterase NEGATIVE (NEGATIVE) Urine WBC (Auto) 0-2 (0-5) /HPF Urine RBC (Auto) 0-2 (0-2) /HPF U Epithel Cells (Auto) RARE (FEW) /HPF Urine Bacteria (Auto) NONE (NEGATIVE) /HPF Urine Mucus (Auto) SLIGHT (NEGATIVE) /HPF Urine Culture Reflexed NO (NO) Urine Glucose NEGATIVE (NEGATIVE) mg/dL SARS-CoV-2 (PCR) NEGATIVE (NEGATIVE) 05/18/21 05/18/21 05/18/21 Range/Units 13:05 15:40 18:25 WBC (4.0-10.5) K/mm3 RBC (4.1-5.4) M/mm3 Hgb (12.0-16.0) gm/dl Hct (35-47) % MCV (78-100) fl MCH (26-32) pg MCHC (32-36) g/dl RDW (11.5-14.0) % Plt Count (150-450) K/mm3 MPV (7.5-11.0) fl Gran % (36.0-66.0) % Eos # (Auto) (0-0.5) Absolute Lymphs (auto) (1.0-4.6) Absolute Monos (auto) (0.0-1.3) Lymphocytes % (24.0-44.0) % Monocytes % (0.0-12.0) % Eosinophils % (0.00-5.0) % Basophils % (0.0-0.4) % Absolute Granulocytes (1.4-6.9) Basophils # (0-0.4) Sodium (137-145) mmol/L Potassium (3.5-5.1) mmol/L Chloride (98-107) mmol/L Carbon Dioxide (22-30) mmol/L Anion Gap (5-15) MEQ/L BUN (7-17) mg/dL Creatinine (0.52-1.04) mg/dL Estimated GFR ML/MIN Glucose (74-106) mg/dL Calcium (8.4-10.2) mg/dL Total Bilirubin (0.2-1.3) mg/dL AST (14-36) U/L ALT (0-35) U/L Alkaline Phosphatase (38-126) U/L Troponin I < 0.012 < 0.012 < 0.012 (0.000-0.034) ng/mL Serum Total Protein (6.3-8.2) g/dL Albumin (3.5-5.0) g/dL Urine Color (YELLOW) Urine Appearance (CLEAR) Urine pH (5-6) Ur Specific [place] (1.005-1.025) Urine Protein (Negative) Urine Ketones (NEGATIVE) Urine Blood (0-5) Dung/ul Urine Nitrite (NEGATIVE) Urine Bilirubin (NEGATIVE) Urine Urobilinogen (0-1) mg/dL Ur Leukocyte Esterase (NEGATIVE) Urine WBC (Auto) (0-5) /HPF Urine RBC (Auto) (0-2) /HPF U Epithel Cells (Auto) (FEW) /HPF Urine Bacteria (Auto) (NEGATIVE) /HPF Urine Mucus (Auto) (NEGATIVE) /HPF Urine Culture Reflexed (NO) Urine Glucose (NEGATIVE) mg/dL SARS-CoV-2 (PCR) (NEGATIVE) 05/19/21 05/19/21 Range/Units 05:05 05:05 WBC 18.1 H (4.0-10.5) K/mm3 RBC 3.66 L (4.1-5.4) M/mm3 Hgb 12.1 (12.0-16.0) gm/dl Hct 36.9 (35-47) % MCV 100.8 H (78-100) fl MCH 33.1 H (26-32) pg MCHC 32.8 (32-36) g/dl RDW 13.1 (11.5-14.0) % Plt Count 281 (150-450) K/mm3 MPV 9.8 (7.5-11.0) fl Gran % 91.8 H (36.0-66.0) % Eos # (Auto) 0 (0-0.5) Absolute Lymphs (auto) 0.77 L (1.0-4.6) Absolute Monos (auto) 0.70 (0.0-1.3) Lymphocytes % 4.2 L (24.0-44.0) % Monocytes % 3.9 (0.0-12.0) % Eosinophils % 0.0 (0.00-5.0) % Basophils % 0.1 (0.0-0.4) % Absolute Granulocytes 16.66 H (1.4-6.9) Basophils # 0.01 (0-0.4) Sodium 141 (137-145) mmol/L Potassium 4.7 (3.5-5.1) mmol/L Chloride 111 H (98-107) mmol/L Carbon Dioxide 19 L (22-30) mmol/L Anion Gap 15.6 H (5-15) MEQ/L BUN 16 (7-17) mg/dL Creatinine 0.58 (0.52-1.04) mg/dL Estimated GFR > 60.0 ML/MIN Glucose 170 H (74-106) mg/dL Calcium 9.2 (8.4-10.2) mg/dL Total Bilirubin 0.20 (0.2-1.3) mg/dL AST 32 (14-36) U/L ALT 28 (0-35) U/L Alkaline Phosphatase 87 (38-126) U/L Troponin I (0.000-0.034) ng/mL Serum Total Protein 6.7 (6.3-8.2) g/dL Albumin 3.7 (3.5-5.0) g/dL Urine Color (YELLOW) Urine Appearance (CLEAR) Urine pH (5-6) Ur Specific [place] (1.005-1.025) Urine Protein (Negative) Urine Ketones (NEGATIVE) Urine Blood (0-5) Dung/ul Urine Nitrite (NEGATIVE) Urine Bilirubin (NEGATIVE) Urine Urobilinogen (0-1) mg/dL Ur Leukocyte Esterase (NEGATIVE) Urine WBC (Auto) (0-5) /HPF Urine RBC (Auto) (0-2) /HPF U Epithel Cells (Auto) (FEW) /HPF Urine Bacteria (Auto) (NEGATIVE) /HPF Urine Mucus (Auto) (NEGATIVE) /HPF Urine Culture Reflexed (NO) Urine Glucose (NEGATIVE) mg/dL SARS-CoV-2 (PCR) (NEGATIVE) Radiology Exams: Radiology Procedures Category Date Time Status ARTERIAL BILAT LOWER EXTREMITY [US] Routine Exams 05/19/21 Ordered CHEST 1 VIEW (PORTABLE) Stat Exams 05/18/21 06:17 Completed CHEST WITH CONTRAST [CT] Stat Exams 05/18/21 07:41 Completed Assessment/Plan (1) Pneumonia Current Visit: Yes Status: Acute Qualifiers: Pneumonia type: due to unspecified organism Laterality: bilateral Lung location: unspecified part of lung Qualified Code(s): J18.9 - Pneumonia, unspecified organism Assessment & Plan: continue levaquin Code(s): J18.9 - PNEUMONIA, UNSPECIFIED ORGANISM (2) COPD (chronic obstructive pulmonary disease) Current Visit: No Status: Acute Qualifiers: COPD type: unspecified COPD Qualified Code(s): J44.9 - Chronic obstructive pulmonary disease, unspecified Assessment & Plan: IV solu medrol and nebs continued
[2021-05-19] MEDS: NORVASC 5 MG PO SCH (09:34)
[2021-05-19] MEDS: NICODERM CQ 14 MG TOP SCH (09:34)
[2021-05-19] MEDS: ENOXAPARIN SODIUM SQ SCH (09:34)
[2021-05-19] MEDS: Levofloxacin 500MG/100ML D5W 500 MG/100 ML BAG IV SCH (09:34)
[2021-05-19] MEDS: Sodium Chloride 0.9% 1000 ML 1,000 ML IV SCH ×2 (10:21→19:54)
--- NOTE | 2021-05-19 11:27 | XRAY ---
Indication: Bilateral leg pain. Two-dimensional sonogram and color Doppler imaging of the major arteries of the left and right leg performed. Comparison: None Examination of the right leg demonstrates widely patent common femoral, deep femoral, superficial femoral, popliteal, and posterior tibial arteries. Dorsal pedal artery attenuated. Posterior tibial and dorsal pedal arterial waveforms are monophasic. Remaining right leg arterial waveforms are multiphasic. Right arm brachial pressure is 130. Right ankle pressure is 171. Ankle brachial index is 1.3, normal. Examination of the left leg demonstrates widely patent common femoral, deep femoral, superficial femoral, popliteal, and dorsal pedal arteries. Posterior tibial and dorsal pedal arterial waveforms are monophasic. Remaining left leg arterial waveforms are multiphasic. Left arm brachial pressure not obtained due to indwelling IV. Left ankle pressure is 171. Ankle brachial index using right arm pressure is 1.3, normal. Impression: 1. Left and right leg arterial sonogram negative for critical stenosis/obstruction. 2. Left and right ABIs are normal.
[2021-05-19] MEDS: XANAX 1 MG PO PRN ×3 (19:54→21:47)
[2021-05-20 05:25] LABS: Absolute Neutrophil Ct (ANC) 18.15 (1.4-6.9); Basophil (Absolute #) 0 (0-0.4); Eosinophil (Absolute #) 0 (0-0.5); Hematocrit 36.7 % (35-47); Hemoglobin 11.8 gm/dl (12.0-16.0); Lymphocyte (Absolute #) 0.92 (1.0-4.6); Lymphocytes % 4.6 % (24.0-44.0); Mean Cell Volume 101.7 fl (78-100); Mean Corpuscular Hemoglobin 32.7 pg (26-32); Mean Corpuscular Hgb Concent. 32.2 g/dl (32-36); Mean Platelet Volume 9.4 fl (7.5-11.0); Monocyte (Absolute #) 0.74 (0.0-1.3); Monocytes % 3.7 % (0.0-12.0); Neutrophil % 91.7 % (36.0-66.0); Platelet Count 295 K/mm3 (150-450); Red Blood Count 3.61 M/mm3 (4.1-5.4); Red Cell Distribution Width 13.3 % (11.5-14.0); White Blood Count 19.8 K/mm3 (4.0-10.5)
[2021-05-20] MEDS: OXYCODONE-ACETAMINOPHEN 10-325 PO PRN (05:37)
[2021-05-20] MEDS: solu-MEDROL 80 MG, Sterile H2O 10 ml 2 ML IV SCH ×4 (05:40→14:32)
[2021-05-20] MEDS: Sodium Chloride 0.9% 1000 ML 1,000 ML IV SCH (05:40)
[2021-05-20 06:10] LABS: ANION GAP 11.5 MEQ/L (5-15); BLOOD UREA NITROGEN 15 mg/dL (7-17); CHLORIDE 108 mmol/L (98-107); Calcium 9.2 mg/dL (8.4-10.2); Carbon Dioxide 22 mmol/L (22-30); Creatinine 1 0.63 mg/dL (0.52-1.04); EST GLOMERULAR FILTRATION RATE > 60.0 ML/MIN; Glucose 147 mg/dL (74-106); Potassium 4.6 mmol/L (3.5-5.1); SODIUM 137 mmol/L (137-145)
[2021-05-20] MEDS: VENTOLIN COMMON CANISTER IH SCH ×2 (07:10→10:25)
[2021-05-20] MEDS: Levofloxacin 500MG/100ML D5W 500 MG/100 ML BAG IV SCH (09:05)
[2021-05-20] MEDS: NICODERM CQ 14 MG TOP SCH (09:05)
[2021-05-20] MEDS: NORVASC 5 MG PO SCH (09:05)
[2021-05-20] MEDS: ENOXAPARIN SODIUM SQ SCH (09:05)
[2021-05-20] MEDS: Zofran 4 MG/2 ML VIAL IV PRN (09:07)
[2021-05-20] MEDS ORDERED: Hydromorphone 1 mg/ml Injection IV PRN (09:13)
--- NOTE | 2021-05-20 09:19 | PCM.NOTE ---
Date and Time: 05/20/21912 Subjective Assessment: Pt is feeling very poorly currently - on the stool having diarrhea and vomiting. States her breathing was better before this. Says her barth was difficult to eat this morning. States her back pain has been bad and made it difficult to sleep, although she did sleep last night with 2 doses of xanax and a dose of ativan. - Review of Systems Constitutional: No Fever Abdominal/Gastrointestinal: Vomiting, Diarrhea Objective Exam General Appearance: moderate distress, alert Neurologic Exam: oriented x 3, cooperative Skin Exam: normal color, warm, dry, No rash Respiratory Exam: diminished breath sounds (fair air exchange), wheezing (scattered), No crackles/rales, No rhonchi Cardiovascular Exam: regular rate/rhythm, normal heart sounds, No murmur Extremity Exam: normal inspection OBJECTIVE DATA Vital Signs: Vital Signs - 24 hr Temp Pulse Resp BP Pulse Ox 05/20/21 08:00 98.4 F 92 H 18 164/88 92 L 05/20/21 07:12 80 24 94 L 05/20/21 04:30 97.9 F 87 22 159/88 94 L 05/20/21 00:00 98.2 F 74 20 159/93 93 L 05/19/21 19:49 98.5 F 86 22 128/89 91 L 05/19/21 19:19 97 H 22 92 L 05/19/21 16:00 98.9 F 110 H 21 141/86 90 L 05/19/21 15:20 100 H 22 94 L 05/19/21 12:30 100 H 24 87 L 05/19/21 12:00 98.7 F 96 H 14 142/81 92 L Pain Assessment - Last Documented Pain Intensity 4 Pain Scale Used 0-10 Pain Scale Intake and Output: Intake & Output 05/17/21 05/18/21 05/19/21 05/20/21 11:59 11:59 11:59 11:59 Intake Total 360 4326 Balance 360 4326 Weight 44.2 kg 46.2 kg Lab Results: Lab Results-Last 24 Hours 05/20/21 05/20/21 Range/Units 05:00 05:00 WBC 19.8 H (4.0-10.5) K/mm3 RBC 3.61 L (4.1-5.4) M/mm3 Hgb 11.8 L (12.0-16.0) gm/dl Hct 36.7 (35-47) % MCV 101.7 H (78-100) fl MCH 32.7 H (26-32) pg MCHC 32.2 (32-36) g/dl RDW 13.3 (11.5-14.0) % Plt Count 295 (150-450) K/mm3 MPV 9.4 (7.5-11.0) fl Gran % 91.7 H (36.0-66.0) % Eos # (Auto) 0 (0-0.5) Absolute Lymphs (auto) 0.92 L (1.0-4.6) Absolute Monos (auto) 0.74 (0.0-1.3) Lymphocytes % 4.6 L (24.0-44.0) % Monocytes % 3.7 (0.0-12.0) % Eosinophils % 0.0 (0.00-5.0) % Basophils % 0.0 (0.0-0.4) % Absolute Granulocytes 18.15 H (1.4-6.9) Basophils # 0 (0-0.4) Sodium 137 (137-145) mmol/L Potassium 4.6 (3.5-5.1) mmol/L Chloride 108 H (98-107) mmol/L Carbon Dioxide 22 (22-30) mmol/L Anion Gap 11.5 (5-15) MEQ/L BUN 15 (7-17) mg/dL Creatinine 0.63 (0.52-1.04) mg/dL Estimated GFR > 60.0 ML/MIN Glucose 147 H (74-106) mg/dL Calcium 9.2 (8.4-10.2) mg/dL Radiology Exams: Radiology Procedures Category Date Time Status ARTERIAL BILAT LOWER EXTREMITY [US] Routine Exams 05/19/21 10:53 Completed Multi-Disciplinary Progress Notes: Multi-Disciplinary Progress Notes 05/19/21 20:47 Respiratory Note by Ramin Biggs PT SITTING UP IN BED AT THIS TIME, PT WAS HOLDING OXYMASK TO FACE COMPLAINING THAT SHE WAS HOT AND HAD BEEN COUGHING AND WAS SOB. THE OXYMASK DID NOT HAVE O2 FLOWING TO IT, THE O2 WAS FLOWING TO THE NC. PT SATS AT THIS TIME WERE 89%. I PLACED PT ON NC AND PUT THE OXYMASK ON THE FLOWMETER SO PT COULD NOT REACH IT. PT SATS RECOVERED QUICKLY TO 92% ON 4LPM. I LEFT PT ON 4LPM NC. Initialized on 05/19/21 20:47 - END OF NOTE 05/19/21 12:32 Respiratory Note by Ines Duffy [id number] PT O2 SAT ON ROOM AIR AT REST 87%. PLACED ON 3LPM NC. O2 SAT 92% ON 3LPM NC Initialized on 05/19/21 12:32 - END OF NOTE 05/19/21 12:26 Case Management Note by Lupis Garduno REFERRAL FAXED TO [facility] AT THIS TIME Initialized on 05/19/21 12:26 - END OF NOTE Assessment/Plan (1) Pneumonia Current Visit: Yes Status: Acute Qualifiers: Pneumonia type: due to unspecified organism Laterality: bilateral Lung location: unspecified part of lung Qualified Code(s): J18.9 - Pneumonia, unsp ecified organism Assessment & Plan: on aquin day #4. on 4L NC. Was feeling better prior to her vomiting this morning. Code(s): J18.9 - PNEUMONIA, UNSPECIFIED ORGANISM (2) Tobacco abuse Current Visit: Yes Status: Chronic Code(s): Z72.0 - TOBACCO USE (3) Exposure to COVID-19 virus Current Visit: Yes Status: Acute Assessment & Plan: recheck Code(s): Z20.822 - CONTACT WITH AND (SUSPECTED) EXPOSURE TO COVID-19 (4) Hypertension Current Visit: Yes Status: Acute Qualifiers: Hypertension type: primary hypertension Qualified Code(s): I10 - Essential (primary) hypertension Code(s): I10 - ESSENTIAL (PRIMARY) HYPERTENSION (5) Hypoxia Current Visit: Yes Status: Acute Code(s): R09.02 - HYPOXEMIA (6) COPD (chronic obstructive pulmonary disease) Current Visit: No Status: Chronic Qualifiers: COPD type: unspecified COPD Qualified Code(s): J44.9 - Chronic obstructive pulmonary disease, unspecified (7) Low back pain Current Visit: Yes Status: Chronic Qualifiers: Chronicity: chronic Back pain laterality: midline Sciatica presence: unspecified whether sciatica present Qualified Code(s): M54.50 - Low back pain, unspecified; G89.29 - Other chronic pain Code(s): M54.50 - LOW BACK PAIN, UNSPECIFIED (8) History of CVA (cerebrovascular accident) Current Visit: Yes Status: Chronic Code(s): Z86.73 - PRSNL HX OF TIA (TIA), AND CEREB INFRC W/O RESID DEFICITS (9) Vomiting Current Visit: Yes Status: Acute Qualifiers: Vomiting type: unspecified Vomiting Intractability: non-intractable Nausea presence: unspecified Qualified Code(s): R11.10 - Vomiting, unspecified Assessment & Plan: could be post-tussive. zofran prn. Code(s): R11.10 - VOMITING, UNSPECIFIED (10) Diarrhea Current Visit: Yes Status: Acute Qualifiers: Diarrhea type: unspecified type Qualified Code(s): R19.7 - Diarrhea, unspecified Assessment & Plan: add probiotic and check for c. diff Code(s): R19.7 - DIARRHEA, UNSPECIFIED
[2021-05-20] MEDS: Acidophilus TABLET PO SCH ×2 (10:14→15:03)
[2021-05-20] MEDS: Ativan 2 MG/1 ML VIAL IV PRN (13:36)
[2021-05-20] MEDS ORDERED: Hydromorphone 1 mg/ml Injection IV ONE (14:02)
[2021-05-20] MEDS ORDERED: Tessalon Perles 100 MG PO PRN (14:02)
[2021-05-20] MEDS: XANAX 1 MG PO PRN (16:07)
[2021-05-20 17:11] VITALS: BP 195/102; PULSE 110; O2SAT 95
== END 2021-05-20 18:10 | disposition left against medical advice (07) | DRG 195 ==
LOC: ED 05:52 → MED SURG 12:40 → OBSVTOIN 19:04
PROVIDERS: ADMIT Family Medicine; ATTEND Family Medicine
DX: J18.9 Pneumonia, unspecified organism (principal); I16.0 Hypertensive urgency; R51.9 Headache, unspecified; R42 Dizziness and giddiness; M54.9 Dorsalgia, unspecified; R11.2 Nausea with vomiting, unspecified; I10 Essential (primary) hypertension; R19.7 Diarrhea, unspecified; R09.02 Hypoxemia; Z86.73 Personal history of transient ischemic attack (TIA), and cerebral infarction without residual deficits; J44.9 Chronic obstructive pulmonary disease, unspecified; R07.9 Chest pain, unspecified; Z72.0 Tobacco use; Z20.822 Contact with and (suspected) exposure to COVID-19
CPT/HCPCS: 36000; 36415; 71045; 71260; 80048; 80053; 81001; 82150; 83605; 83690; 83880; 84145; 84484; 85025; 85379; 85610; 87040; 93005; 93041; 93268; 93925; 94640; 94760; 94762; 96365; 96374; 96375; 96376; 99285; U0003; J1170; J1650; J1956; J2060; J2405; J2930; A9270-GY

== ENCOUNTER 2021-08-14 06:22 | Observation (INO) | payer MEDICARE ==
[2021-08-14] MEDS ORDERED: Zofran 4 MG/2 ML VIAL IV ONE (06:45)
[2021-08-14] MEDS ORDERED: HYDROCODONE-ACETAMIN 2.5-108/5 ML SOLUTION PO STA (06:48)
[2021-08-14] MEDS ORDERED: solu-MEDROL 125 MG, Sterile H2O 10 ml 2 ML IV ONE ×2 (06:48)
[2021-08-14] MEDS ORDERED: solu-MEDROL ONE (07:08)
[2021-08-14] MEDS ORDERED: Hydromorphone 1 mg/ml Injection IV ONE (07:08)
[2021-08-14] MEDS ORDERED: HYDROCODONE-ACETAMIN 2.5-108/5 ML SOLUTION ONE (07:08)
[2021-08-14] MEDS ORDERED: Zofran 4 MG/2 ML VIAL ONE (07:08)
[2021-08-14] MEDS ORDERED: Sterile H2O 10 ml IJ ONE (07:09)
[2021-08-14] MEDS: Sodium Chloride 0.9% 1000 ML 1,000 ML IV SCH ×3 (07:10→22:52)
--- NOTE | 2021-08-14 07:11 | ERPHSYRPT ---
- History of Present Illness Time Seen by Provider: 08/14/21 07:08 Source: patient Exam Limitations: no limitations Patient Subjective Stated Complaint: cough, fever, chills, loss of taste and smell, sob, headache and body aches and vomiting a few times since yesterday Triage Nursing Assessment: pt c/o COVID symptoms: fever, chills, sob, loss of tase and smell, headaches and body aches, and vomiting a few times yesterday. Lungs clear ant, slightly diminished posterior. Pt has prod cough with mod amt of thick yellow sputum. Pt's cough is rattley and sounds to be in upper airways. Pt started feeling bad 4 days ago and has just gotten worse. Physician History: Patient is a 56-year-old white female who presents with a 4-day history of shortness of breath fever body aches nausea vomiting loss of taste and smell and many other symptoms compatible with COVID. She has not been vaccinated. She complains of some back pain because of coughing which is exacerbating her chronic back pain she has had three back surgeries. Last night was her most difficult night with shortness of breath and cough. Timing/Duration: day(s) (4) Cough Quality/Degree: productive cough, sputum Possible Cause: occasional episodes Associated Symptoms: fever, chills, chest pain/soreness, cough, headache, nasal congestion, nasal drainage, shortness of breath, wheezing Allergies/Adverse Reactions: Penicillins Allergy (Mild, Verified 08/14/21 06:36) Home Medications: No Reportable Medications [No Reported Medications] 05/18/21 [History] Hx Tetanus, Diphtheria Vaccination/Date Given: No Hx Influenza Vaccination/Date Given: No Hx Pneumococcal Vaccination/Date Given: No Immunizations Up to Date: No Travel Risk - International Travel Have you traveled outside of the country in past 3 weeks: No - Coronavirus Screening Are you exhibiting any of the following symptoms?: Yes Symptoms: Fever, Cough: New Onset, Shortness of Breath, Vomiting/Diarrhea, Loss of Taste or Smell, Headaches/Body Aches/Fatigue Close contact with a COVID-19 positive Pt in past 14-21 Days: No - Vaccine Status Have you recieved a Covid-19 vaccination: No - Review of Systems Constitutional: Fever, Chills Eyes: No Symptoms Ears, Nose, & Throat: Nose Congestion, Nose Discharge, Sinus Drainage, Throat Pain, Hoarse, Painful Swallowing Respiratory: Cough, Dyspnea Cardiac: No Chest Pain, No Edema, No Syncope Abdominal/Gastrointestinal: Abdominal Pain, Nausea, Vomiting, Diarrhea Genitourinary Symptoms: No Dysuria Musculoskeletal: Arthralgias, Back Pain, Myalgias, No Neck Pain Skin: No Rash Neurological: Headache, No Dizziness, No Focal Weakness, No Sensory Changes Psychological: No Symptoms Endocrine: No Symptoms All Other Systems: Reviewed and Negative - Past Medical History Pertinent Past Medical History: Yes Neurological History: Stroke Cardiac History: Hypertension Respiratory History: Bronchitis, COPD, Emphysema, Pneumonia, Sleep Apnea Musculoskeletal History: No Pertinent History GI Medical History: No Pertinent History History: No Pertinent History Psycho-Social History: Depression Female Reproductive Disorders: No Pertinent History - Past Surgical History Past Surgical History: Yes Neuro Surgical History: No Pertinent History Cardiac: No Pertinent History Respiratory: No Pertinent History Gastrointestinal: No Pertinent History Genitourinary: No Pertinent History Musculoskeletal: Orthopedic Surgery Female Surgical History: Hysterectomy, Tubal Ligation, Section Other Surgical History: neck fusion - back surgeries x 3 - right elbow - left hand - left ankle - Social History Smoking Status: Current every day smoker How long have you smoked: 44 yrs Exposure to second hand smoke: Yes Drug Use: marijuana Patient Lives Alone: Yes Significant Family History: no pertinent family hx - Female History Hx Now: No - Nursing Vital Signs Nursing Vital Signs: Initial Vital Signs Temperature 98.1 F 08/14/21 06:22 Pulse Rate 90 08/14/21 06:22 Respiratory Rate 20 08/14/21 06:22 Blood Pressure 161/97 08/14/21 06:22 O2 Sat by Pulse Oximetry 99 08/14/21 06:22 Pain Scale Pain Intensity 5 - Physical Exam General Appearance: moderate distress, alert Eye Exam: PERRL/EOMI, eyes nml inspection Ears, Nose, Throat Exam: normal ENT inspection, TMs normal, pharynx normal, moist mucous membranes Neck Exam: normal inspection, non-tender, supple, full range of motion Respiratory Exam: diminished breath sounds, crackles/rales, wheezing, No respiratory distress Cardiovascular Exam: regular rate/rhythm, normal heart sounds Gastrointestinal/Abdomen Exam: soft, No tenderness Back Exam: normal inspection, No CVA tenderness, No vertebral tenderness Extremity Exam: normal inspection, normal range of motion Neurologic Exam: alert, oriented x 3, cooperative, normal mood/affect, sensation nml, No motor deficits Skin Exam: normal color, warm, dry, No rash Lymphatic Exam: No adenopathy SpO2: 97 - Course Nursing assessment & vital signs reviewed: Yes EKG Interpreted by Me: RATE (81), Sinus Rhythm, NORMAL AXIS, NORMAL INTERVALS, NORMAL QRS, NORMAL ST-T - Radiology Exams Chest X-ray Interpretation: Pneumonia - CT Exams Chest CT Interpretation: Negative (Negative for pulmonary emboli) Ordered Tests: Active Orders 24 hr Category Date Time Status EKG-ER Only STAT Care 08/14/21 06:45 Active IV Insertion STAT Care 08/14/21 06:45 Active Isolation, Initiate & Maintain STAT Care 08/14/21 06:46 Active Pulse Oximetry (ED) STAT Care 08/14/21 06:45 Active CHEST 1 VIEW (PORTABLE) Stat Exams 08/14/21 06:46 Completed CHEST WITH CONTRAST [CT] Stat Exams 08/14/21 08:23 Completed BLOOD CULTURE Stat Lab 08/14/21 07:05 Received CBC W DIFF Stat Lab 08/14/21 06:45 Completed CMP Stat Lab 08/14/21 07:05 Completed D-DIMER QUANTITATIVE Stat Lab 08/14/21 07:05 Completed Ferritin Stat Lab 08/14/21 07:05 Completed INFLUENZA A+B ANNIKA Stat Lab 08/14/21 07:05 Completed LDH-LACTATE DEHYDROGENASE Stat Lab 08/14/21 07:05 Completed Lactic Acid Stat Lab 08/14/21 06:45 Completed Mellette Screen Stat Lab 08/14/21 07:05 Completed UA W/RFX UR CULTURE Stat Lab 08/14/21 06:46 Ordered Medication Summary Generic Name Dose Route Start Last Admin Trade Name Freq PRN Reason Stop Dose Admin Sodium Chloride 1,000 mls @ 100 mls/hr 08/14/21 06:45 08/14/21 07:10 Sodium Chloride 0.9% 1000 Ml IV 09/13/21 06:44 100 mls/hr .Q10H ESTEFANI Administration Levofloxacin/Dextrose 750 mg in 150 mls @ 100 mls/hr 08/14/21 10:52 Levofloxacin 750mg/150ml D5w IV 08/14/21 12:21 STAT STA Discontinued Medications Generic Name Dose Route Start Last Admin Trade Name Freq PRN Reason Stop Dose Admin Hydrocodone Bitart/Acetaminophen 10 ml 08/14/21 06:48 08/14/21 07:10 Hydrocodone/Acetaminophen 5 Ml Udcup PO 08/14/21 06:49 10 ml STAT STA Administration Hydrocodone Bitart/Acetaminophen Confirm 08/14/21 07:08 Hydrocodone/Acetaminophen 5 Ml Udcup Administered 08/14/21 07:09 Dose 10 ml .ROUTE .STK-MED ONE Hydrocodone Bitart/Acetaminophen 1 tab 08/14/21 09:33 08/14/21 09:39 Hydrocodone/Apap 5/325 Mg Tablet PO 08/14/21 09:34 1 tab STAT ONE Administration Hydrocodone Bitart/Acetaminophen Confirm 08/14/21 09:37 Hydrocodone/Apap 5/325 Mg Tablet Administered 08/14/21 09:38 Dose 1 tab .ROUTE .STK-MED ONE Methylprednisolone Sodium 0 mg 08/14/21 06:48 08/14/21 07:10 Succinate 125 mg/ Sterile IV 08/14/21 06:49 125 mg Water 2 ml STAT ONE Administration Hydromorphone HCl 1 mg 08/14/21 07:08 08/14/21 07:20 Hydromorphone 1 Mg/1ml Inj 1 Mg/Ml Syringe IV 08/14/21 07:09 1 mg STAT ONE Administration Hydromorphone HCl Confirm 08/14/21 07:20 Hydromorphone 1 Mg/1ml Inj 1 Mg/Ml Syringe Administered 08/14/21 07:21 Dose 1 mg .ROUTE .STK-MED ONE Methylprednisolone Sodium Succinate Confirm 08/14/21 07:08 Methylprednis Sod Succ 125 Mg/2 Ml Vial Administered 08/14/21 07:09 Dose 125 mg .ROUTE .STK-MED ONE Ondansetron HCl 4 mg 08/14/21 06:45 08/14/21 07:10 Ondansetron Hcl 4 Mg/2 Ml Vial IV 08/14/21 06:46 4 mg STAT ONE Administration Ondansetron HCl Confirm 08/14/21 07:08 Ondansetron Hcl 4 Mg/2 Ml Vial Administered 08/14/21 07:09 Dose 4 mg .ROUTE .STK-MED ONE Sterile Water Confirm 08/14/21 07:09 Water For Injection,Sterile 10 Ml Vial Administered 08/14/21 07:10 Dose 10 ml IJ .STK-MED ONE Lab/Rad Data: Laboratory Result Diagrams 08/14/21 06:45 08/14/21 07:05 Laboratory Results 08/14/21 08/14/21 08/14/21 Range/Units 09:35 07:05 07:05 WBC (4.0-10.5) K/mm3 RBC (4.1-5.4) M/mm3 Hgb (12.0-16.0) gm/dl Hct (35-47) % MCV (78-100) fl MCH (26-32) pg MCHC (32-36) g/dl RDW (11.5-14.0) % Plt Count (150-450) K/mm3 MPV (7.5-11.0) fl Gran % (36.0-66.0) % Eos # (Auto) (0-0.5) Absolute Lymphs (auto) (1.0-4.6) Absolute Monos (auto) (0.0-1.3) Lymphocytes % (24.0-44.0) % Monocytes % (0.0-12.0) % Eosinophils % (0.00-5.0) % Basophils % (0.0-0.4) % Absolute Granulocytes (1.4-6.9) Basophils # (0-0.4) D-Dimer (215-500) ng/mL Sodium (137-145) mmol/L Potassium (3.5-5.1) mmol/L Chloride (98-107) mmol/L Carbon Dioxide (22-30) mmol/L Anion Gap (5-15) MEQ/L BUN (7-17) mg/dL Creatinine (0.52-1.04) mg/dL Estimated GFR ML/MIN Glucose (74-106) mg/dL Lactic Acid (0.4-2.0) Calcium (8.4-10.2) mg/dL Ferritin 36.0 (11.1-264) ng/mL Total Bilirubin (0.2-1.3) mg/dL AST (14-36) U/L ALT (0-35) U/L Alkaline Phosphatase (38-126) U/L Lactate Dehydrogenase (120-246) U/L Serum Total Protein (6.3-8.2) g/dL Albumin (3.5-5.0) g/dL Monoscreen NEGATIVE (Negative) Influenza Type A Ag NEGATIVE (NEGATIVE) Influenza Type B Ag NEGATIVE (NEGATIVE) RSV (PCR) NEGATIVE (Negative) SARS-CoV-2 (PCR) NEGATIVE (NEGATIVE) Group A Strep Antibody (NEGATIVE) 08/14/21 08/14/21 08/14/21 Range/Units 07:05 07:05 07:05 WBC (4.0-10.5) K/mm3 RBC (4.1-5.4) M/mm3 Hgb (12.0-16.0) gm/dl Hct (35-47) % MCV (78-100) fl MCH (26-32) pg MCHC (32-36) g/dl RDW (11.5-14.0) % Plt Count (150-450) K/mm3 MPV (7.5-11.0) fl Gran % (36.0-66.0) % Eos # (Auto) (0-0.5) Absolute Lymphs (auto) (1.0-4.6) Absolute Monos (auto) (0.0-1.3) Lymphocytes % (24.0-44.0) % Monocytes % (0.0-12.0) % Eosinophils % (0.00-5.0) % Basophils % (0.0-0.4) % Absolute Granulocytes (1.4-6.9) Basophils # (0-0.4) D-Dimer 828 H* (215-500) ng/mL Sodium (137-145) mmol/L Potassium (3.5-5.1) mmol/L Chloride (98-107) mmol/L Carbon Dioxide (22-30) mmol/L Anion Gap (5-15) MEQ/L BUN (7-17) mg/dL Creatinine (0.52-1.04) mg/dL Estimated GFR ML/MIN Glucose (74-106) mg/dL Lactic Acid (0.4-2.0) Calcium (8.4-10.2) mg/dL Ferritin (11.1-264) ng/mL Total Bilirubin (0.2-1.3) mg/dL AST (14-36) U/L ALT (0-35) U/L Alkaline Phosphatase (38-126) U/L Lactate Dehydrogenase (120-246) U/L Serum Total Protein (6.3-8.2) g/dL Albumin (3.5-5.0) g/dL Monoscreen (Negative) Influenza Type A Ag NEGATIVE (NEGATIVE) Influenza Type B Ag NEGATIVE (NEGATIVE) RSV (PCR) (Negative) SARS-CoV-2 (PCR) (NEGATIVE) Group A Strep Antibody NOT DETECTED (NEGATIVE) 08/14/21 08/14/21 08/14/21 Range/Units 07:05 06:45 06:45 WBC 9.3 (4.0-10.5) K/mm3 RBC 3.93 L (4.1-5.4) M/mm3 Hgb 13.1 (12.0-16.0) gm/dl Hct 38.8 (35-47) % MCV 98.7 (78-100) fl MCH 33.3 H (26-32) pg MCHC 33.8 (32-36) g/dl RDW 14.4 H (11.5-14.0) % Plt Count 298 (150-450) K/mm3 MPV 9.5 (7.5-11.0) fl Gran % 73.1 H (36.0-66.0) % Eos # (Auto) 0.11 (0-0.5) Absolute Lymphs (auto) 1.47 (1.0-4.6) Absolute Monos (auto) 0.90 (0.0-1.3) Lymphocytes % 15.9 L (24.0-44.0) % Monocytes % 9.7 (0.0-12.0) % Eosinophils % 1.2 (0.00-5.0) % Basophils % 0.1 (0.0-0.4) % Absolute Granulocytes 6.77 (1.4-6.9) Basophils # 0.01 (0-0.4) D-Dimer (215-500) ng/mL Sodium 140 (137-145) mmol/L Potassium 4.2 (3.5-5.1) mmol/L Chloride 110 H (98-107) mmol/L Carbon Dioxide 22 (22-30) mmol/L Anion Gap 12.2 (5-15) MEQ/L BUN 19 H (7-17) mg/dL Creatinine 0.65 (0.52-1.04) mg/dL Estimated GFR > 60.0 ML/MIN Glucose 104 (74-106) mg/dL Lactic Acid 0.6 (0.4-2.0) Calcium 8.9 (8.4-10.2) mg/dL Ferritin (11.1-264) ng/mL Total Bilirubin 0.30 (0.2-1.3) mg/dL AST 18 (14-36) U/L ALT 10 (0-35) U/L Alkaline Phosphatase 124 (38-126) U/L Lactate Dehydrogenase 164 (120-246) U/L Serum Total Protein 6.7 (6.3-8.2) g/dL Albumin 4.0 (3.5-5.0) g/dL Monoscreen (Negative) Influenza Type A Ag (NEGATIVE) Influenza Type B Ag (NEGATIVE) RSV (PCR) (Negative) SARS-CoV-2 (PCR) (NEGATIVE) Group A Strep Antibody (NEGATIVE) - Progress Progress: improved Air Movement: good Blood Culture(s) Obtained: Yes Antibiotics given: Yes Discussed with Dr.: Jacob - Departure Departure Disposition: Observation Clinical Impression: Pneumonia Condition: Fair Critical Care Time: No Referrals: JOSEPHINE VARNER [Primary Care Provider] - Follow up/PCP as directed
[2021-08-14] MEDS ORDERED: Hydromorphone 1 mg/ml Injection ONE (07:20)
[2021-08-14 07:23] LABS: Absolute Neutrophil Ct (ANC) 6.77 (1.4-6.9); Basophil (Absolute #) 0.01 (0-0.4); Eosinophil % 1.2 % (0.00-5.0); Eosinophil (Absolute #) 0.11 (0-0.5); Hematocrit 38.8 % (35-47); Hemoglobin 13.1 gm/dl (12.0-16.0); Lymphocyte (Absolute #) 1.47 (1.0-4.6); Lymphocytes % 15.9 % (24.0-44.0); Mean Cell Volume 98.7 fl (78-100); Mean Corpuscular Hemoglobin 33.3 pg (26-32); Mean Corpuscular Hgb Concent. 33.8 g/dl (32-36); Mean Platelet Volume 9.5 fl (7.5-11.0); Monocytes % 9.7 % (0.0-12.0); Neutrophil % 73.1 % (36.0-66.0); Platelet Count 298 K/mm3 (150-450); Red Blood Count 3.93 M/mm3 (4.1-5.4); Red Cell Distribution Width 14.4 % (11.5-14.0); White Blood Count 9.3 K/mm3 (4.0-10.5)
[2021-08-14 07:34] LABS: ALKALINE PHOSPHATASE 124 U/L (38-126); ANION GAP 12.2 MEQ/L (5-15); BLOOD UREA NITROGEN 19 mg/dL (7-17); CHLORIDE 110 mmol/L (98-107); Calcium 8.9 mg/dL (8.4-10.2); Carbon Dioxide 22 mmol/L (22-30); Creatinine 1 0.65 mg/dL (0.52-1.04); EST GLOMERULAR FILTRATION RATE > 60.0 ML/MIN; Glucose 104 mg/dL (74-106); LDH-LACTATE DEHYDROGENASE 164 U/L (120-246); Potassium 4.2 mmol/L (3.5-5.1); SGOT/AST 18 U/L (14-36); SGPT/ALT 10 U/L (0-35); SODIUM 140 mmol/L (137-145); Total Protein 6.7 g/dL (6.3-8.2)
[2021-08-14 07:57] LABS: INFLUENZA A NEGATIVE (NEGATIVE); INFLUENZA B NEGATIVE (NEGATIVE)
--- NOTE | 2021-08-14 09:06 | XRAY ---
Indication: Fever and cough. Comparison: May 18, 2021. Portable chest again hyperinflated with new minimal subsegmental atelectasis/scarring. Inferior right upper lobe demonstrates new subtle patchy airspace disease. No consolidation or large effusion. Heart not enlarged. Bony thorax intact again with mild osteopenia, degenerative changes, and incompletely visualized lower cervical fusion hardware. Impression: New small right upper lobe airspace disease.
[2021-08-14] MEDS ORDERED: NORCO 5/325 MG PO ONE (09:33)
[2021-08-14] MEDS ORDERED: NORCO 5/325 MG ONE (09:37)
--- NOTE | 2021-08-14 09:40 | XRAY ---
Indication: Cough, short of breath, nausea, and vomiting. Elevated d-dimer. Multiple contiguous axial images obtained through the chest using 80 cc Isovue 370 contrast and PE protocol. Comparison: May 18, 2021. Good opacification of the pulmonary arteries to includes the lobar and segmental branches. No pulmonary embolus. Heart not enlarged. Aorta normal in course and caliber. No pathologic mediastinal/hilar lymphadenopathy. Lungs again demonstrates pulmonary emphysema with scattered peripheral fibrosis/scarring. There is now mild bilateral dependent atelectasis right greater than left. No suspicious pulmonary mass, infiltrate, consolidation, or effusion. Bony thorax intact again with T12-L1 degenerative changes. Limited upper abdomen unremarkable. Impression: 1. Continued negative pulmonary embolus. No new/acute cardiopulmonary abnormalities. 2. Again pulmonary edema with scattered fibrosis/scarring and incidental T12-L1 degenerative changes
[2021-08-14 10:18] LABS: INFLUENZA A NEGATIVE (NEGATIVE); INFLUENZA B NEGATIVE (NEGATIVE); RESPIRATORY SYNCTIAL VIRUS NEGATIVE (Negative); SARS-CoV-2 Xpert Express NEGATIVE (NEGATIVE)
[2021-08-14] MEDS ORDERED: LEVOFLOXACIN 750MG/150ML D5W 750 MG/150 ML BAG IV STA (10:52)
[2021-08-14] MEDS ORDERED: PROVENTIL 2.5 MG/3 ML NEB IH PRN (11:38)
[2021-08-14] MEDS ORDERED: LEVOFLOXACIN 750MG/150ML D5W 750 MG/150 ML BAG IV ONE (12:10)
[2021-08-14] MEDS: Hydromorphone 1 mg/ml Injection IV PRN ×3 (13:36→22:44)
[2021-08-14] MEDS: Robitussin-Dm Syrup PO PRN (15:03)
[2021-08-14] MEDS: Toprol Xl 50 MG PO SCH (16:36)
[2021-08-14 17:30] LABS: Appearance CLEAR (CLEAR); Bilirubin NEGATIVE (NEGATIVE); Blood NEGATIVE Ery/ul (0-5); Epithelial Cells RARE /HPF (FEW); Glucose 50 mg/dL (NEGATIVE); Ketones NEGATIVE (NEGATIVE); Leukocyte Esterase NEGATIVE (NEGATIVE); Mucus SLIGHT /HPF (NEGATIVE); Nitrite NEGATIVE (NEGATIVE); Protein,Urine Dip NEGATIVE (Negative); RBC 0-2 /HPF (0-2); Specific Gravity 1.057 (1.005-1.025); Urobilinogen NEGATIVE mg/dL (0-1)
[2021-08-14 18:47] LABS: Bacteria NONE SEEN /HPF (NEGATIVE)
[2021-08-14] MEDS ORDERED: BENADRYL 25 MG CAPSULE PO SCH (22:00)
[2021-08-15] MEDS: Hydromorphone 1 mg/ml Injection IV PRN ×2 (02:44→07:59)
[2021-08-15] MEDS: Robitussin-Dm Syrup PO PRN ×2 (02:45→07:59)
[2021-08-15 06:12] LABS: Absolute Neutrophil Ct (ANC) 4.81 (1.4-6.9); Basophil (Absolute #) 0.01 (0-0.4); Eosinophil % 0.3 % (0.00-5.0); Eosinophil (Absolute #) 0.02 (0-0.5); Hematocrit 36.5 % (35-47); Hemoglobin 11.5 gm/dl (12.0-16.0); Lymphocyte (Absolute #) 2.19 (1.0-4.6); Lymphocytes % 27.4 % (24.0-44.0); Mean Cell Volume 102.8 fl (78-100); Mean Corpuscular Hemoglobin 32.4 pg (26-32); Mean Corpuscular Hgb Concent. 31.5 g/dl (32-36); Mean Platelet Volume 9.6 fl (7.5-11.0); Monocyte (Absolute #) 0.97 (0.0-1.3); Monocytes % 12.1 % (0.0-12.0); Neutrophil % 60.1 % (36.0-66.0); Platelet Count 239 K/mm3 (150-450); Red Blood Count 3.55 M/mm3 (4.1-5.4); Red Cell Distribution Width 14.4 % (11.5-14.0)
[2021-08-15 06:53] LABS: ALBUMIN 3.5 g/dL (3.5-5.0); ALKALINE PHOSPHATASE 65 U/L (38-126); ANION GAP 9.7 MEQ/L (5-15); BLOOD UREA NITROGEN 13 mg/dL (7-17); CHLORIDE 106 mmol/L (98-107); Calcium 8.5 mg/dL (8.4-10.2); Carbon Dioxide 27 mmol/L (22-30); Creatinine 1 0.82 mg/dL (0.52-1.04); EST GLOMERULAR FILTRATION RATE > 60.0 ML/MIN; Glucose 131 mg/dL (74-106); Potassium 4.2 mmol/L (3.5-5.1); SGOT/AST 18 U/L (14-36); SGPT/ALT 11 U/L (0-35); SODIUM 139 mmol/L (137-145); Total Protein 6.1 g/dL (6.3-8.2)
[2021-08-15] MEDS: Sodium Chloride 0.9% 1000 ML 1,000 ML IV SCH (09:02)
[2021-08-15] MEDS: Toprol Xl 50 MG PO SCH (09:33)
[2021-08-15] MEDS ORDERED: LEVOFLOXACIN 750MG/150ML D5W 750 MG/150 ML BAG IV SCH (10:00)
[2021-08-15] MEDS ORDERED: TYLENOL 325 MG PO PRN (11:50)
[2021-08-15] MEDS ORDERED: TYLENOL 325 MG ONE (11:50)
[2021-08-15 12:19] VITALS: PULSE 63; O2SAT 96
[2021-08-15 12:20] VITALS: BP 189/84
--- NOTE | 2021-08-16 11:41 | PCM.SSS ---
History of Present Illness - Chief Complaint Chief Complaint: pneumonia, copd exacerbation Date: 08/15/21 History of Present Illness: is a 56 year old female. Presented to ER with 4 days of cough, fever, decreased sense of taste and smell, general aches. Pt. was stable upon presentation, but it was felt the patient may benefit from hospitalization and iv steroids with antibiotics. Pt. also noted her nebulizer was not functional. - Review of Systems Constitutional: Fever, Chills, Malaise Eyes: No Symptoms Ears, Nose, & Throat: No Symptoms Respiratory: Cough (d), Short Of Breath Cardiac: No Chest Pain, No Edema, No Syncope Abdominal/Gastrointestinal: No Abdominal Pain, No Nausea, No Vomiting, No Diarrhea Genitourinary Symptoms: No Dysuria Musculoskeletal: No Back Pain, No Neck Pain Skin: No Rash Neurological: No Dizziness, No Focal Weakness, No Sensory Changes Psychological: No Symptoms Endocrine: No Symptoms Hematologic/Lymphatic: No Symptoms Immunological/Allergic: No Symptoms Medications & Allergies Home Medications: Home Medication List Albuterol Sulfate [Proair Hfa] 2 puffs IH Q4H PRN 08/14/21 [History Confirmed 08/14/21] Acetaminophen 325 mg [Tylenol 325 mg] 650 mg PO Q4H PRN PRN tablet 08/15/21 [Rx] Albuterol 2.5 mg/3 ml Neb [Proventil 2.5 mg/3 ml Neb] 2.5 mg IH Q4HPRN PRN #30 08/15/21 [Rx] Diphenhydramine HCl 25 mg [Benadryl 25 mg Capsule] 25 mg PO HS 08/15/21 [Rx] Levofloxacin [Levofloxacin 500 MG Tablet] 500 mg PO DAILY 10 Days #10 tablet 08/15/21 [Rx] Prednisone 20 mg [Deltasone 20 mg] 20 mg PO UD #20 tablet 08/15/21 [Rx] Allergies/Adverse Reactions: Allergies Allergy/AdvReac Type Severity Reaction Status Date / Time Penicillins Allergy Mild Verified 08/14/21 06:36 - Past Medical History Past Medical History: Yes Neurological History: Stroke Cardiac History: Hypertension Respiratory History: Bronchitis, COPD, Emphysema, Pneumonia, Sleep Apnea Musculoskelatal History: No Pertinent History GI Medical History: No Pertinent History History: No Pertinent History Pyscho-Social History: Depression Reproductive Disorders: No Pertinent History - Female History Are you now?: No - Past Surgical History Past Surgical History: Yes Neuro Surgical History: No Pertinent History Cardiac History: No Pertinent History Respiratory Surgery: No Pertinent History GI Surgical History: No Pertinent History Genitourinary Surgical Hx: No Pertinent History Musculskeletal Surgical Hx: Orthopedic Surgery Female Surgical History: Hysterectomy, Tubal Ligation, Section Other Surgical History: neck fusion - back surgeries x 3 - right elbow - left hand - left ankle - Social History Smoking Status: Current every day smoker How long have you smoked: 15 yrs Exposure to second hand smoke: Yes Alcohol: None Drug Use: marijuana Significant Family History: no pertinent family hx - Physical Exam Vital Signs: Vital Signs - 24 hr Temp Pulse Resp BP Pulse Ox 08/15/21 12:00 97.0 F 63 18 189/84 96 General Appearance: no apparent distress, alert Neurologic Exam: alert, oriented x 3, cooperative, normal mood/affect, nml cerebellar function, nml station & gait, sensation nml, No motor deficits Eye Exam: PERRL/EOMI, eyes nml inspection Ears, Nose, Throat Exam: normal ENT inspection, TMs normal, moist mucous membranes Neck Exam: normal inspection, non-tender, supple, full range of motion Respiratory Exam: normal breath sounds, prolonged expirations, wheezing, No respiratory distress Cardiovascular Exam: regular rate/rhythm, normal heart sounds, normal peripheral pulses Gastrointestinal/Abdomen Exam: soft, normal bowel sounds, No tenderness, No mass Back Exam: normal inspection, normal range of motion, No CVA tenderness, No vertebral tenderness Extremity Exam: normal inspection, normal range of motion, pelvis stable Skin Exam: normal color, warm, dry, No rash Lymphatic Exam: No adenopathy Results - Labs Lab/Micro Results: Microbiology 08/14/21 07:05 Blood Culture - Preliminary Blood NO GROWTH TO DATE 08/14/21 07:05 Blood Culture - Preliminary Blood NO GROWTH TO DATE Assessment/Plan (1) Pneumonia Status: Acute Qualifiers: Code(s): J18.9 - PNEUMONIA, UNSPECIFIED ORGANISM (2) COPD (chronic obstructive pulmonary disease) Status: Chronic Qualifiers: Hospital Summary - Hospital Course Hospital Course: Pt. admitted and started on iv antibiotics and iv steroids, the following am pt. was at baseline with some persistent mild wheeze but increased air exchange. Pt. was back to baseline with improvement in lung function and ready to be discharged to home, with a new nebulizer and continued oral treatment of her symptoms/ illness. - Vitals & Intake/Output Vital Signs: Vital Signs Temperature 97.0 F 08/15/21 12:00 Pulse Rate 63 08/15/21 12:00 Respiratory Rate 18 08/15/21 12:00 Blood Pressure 189/84 08/15/21 12:00 O2 Sat by Pulse Oximetry 96 08/15/21 12:00 Intake & Output: Intake & Output 08/13/21 08/14/21 08/15/21 08/16/21 11:59 11:59 11:59 11:59 Intake Total 2730 Balance 2730 Weight 49.1 kg 49 kg - Lab Result Diagrams: 08/15/21 06:01 08/15/21 06:01 Micro Results-Entire Visit: Microbiology 08/14/21 07:05 Blood Culture - Preliminary Blood NO GROWTH TO DATE 08/14/21 07:05 Blood Culture - Preliminary Blood NO GROWTH TO DATE - Procedures and Test Procedures and Tests throughout Hospitalization: Therapy Orders & Screens 08/14/21 11:38 Respiratory Therapy Consult ROUTINE Comment: Reason For Exam: 08/14/21 15:00 Oxygen NASAL CANNULA 4 lpm Comment: Diagnosis: pneumonia - Discharge Discharge Date: 08/15/21 Disposition: Home, Self-Care Condition: Fair Prescriptions: New Prednisone 20 mg [Deltasone 20 mg] 20 mg PO UD #20 tablet Albuterol 2.5 mg/3 ml Neb [Proventil 2.5 mg/3 ml Neb] 2.5 mg IH Q4HPRN PRN #30 PRN Reason: Shortness Of Breath/Wheezing Levofloxacin [Levofloxacin 500 MG Tablet] 500 mg PO DAILY 10 Days #10 tablet Acetaminophen 325 mg [Tylenol 325 mg] 650 mg PO Q4H PRN PRN tablet PRN Reason: Pain And/Or Fever Diphenhydramine HCl 25 mg [Benadryl 25 mg Capsule] 25 mg PO HS Continue Albuterol Sulfate [Proair Hfa] 2 puffs IH Q4H PRN PRN Reason: shortness of breath Instructions: Pneumonia, Adult (DC) Additional Instructions: YOU CAN CONTACT THE INSURANCE NAVIGATOR- TEDDY CARNEY @[phone] TO GET ASSISTANCE APPLYING FOR MEDICAID REFERRAL WAS ALSO SENT TO [facility] SO THEY CAN HELP YOU GET ON MEDICAID AND HELP WITH TRANSPORTATION [place] MAY BE ABLE TO ASSIST WITH MEDICATIONS. CALL TUE-TUE [phone] Follow up with: ZUHAIR GUTIERREZ MD [ACTIVE STAFF] - 08/21/21 10:30 am Forms: Discharge Instructions
== END 2021-08-15 13:04 | disposition home or self-care (01) ==
LOC: ED 06:22 → MED SURG 12:33
PROVIDERS: ADMIT Family Medicine; ATTEND Family Medicine
DX: J18.9 Pneumonia, unspecified organism (principal); J44.9 Chronic obstructive pulmonary disease, unspecified; I10 Essential (primary) hypertension; F32.A Depression, unspecified; Z20.828 Contact with and (suspected) exposure to other viral communicable diseases; Z79.899 Other long term (current) drug therapy; Z72.0 Tobacco use
CPT/HCPCS: 0241U; 36415; 71045; 71260; 80053; 81001; 82728; 83605; 83615; 85025; 85379; 86308; 87040; 87400; 87651; 93005; 94760; 96374; 96375; 99285; G0378; J1170; J1956; J2405; J2930; A9270-GY